=== PATIENT | female | born 1945 | race Caucasian/White ===

== ENCOUNTER 2017-04-15 09:46 | Outpatient (CLI) | payer MEDICARE, OTHER ==
[2017-04-15 13:50] LABS: Bilirubin Negative (Negative); Blood, Urine Small (Negative); Clarity CLEAR (Clear); Glucose, Urine (Dipstick) Negative (Negative); Leukocyte Negative (Negative); Nitrite Negative (Negative); Protein, Urine (Dipstick) 30 mg/dL (Neg-Trace); Specific Gravity, Urine 1.019 (1.002-1.036); Urobilinogen 0.2 mg/dL (0.2-1.0); pH, Urine 6.5 (5.0-9.0)
[2017-04-15 14:02] LABS: Bacteria/HPF None Seen HPF (None Seen); Hyaline Casts/LPF 0-3 HYALINE CAST LPF (0-3 Hyaline); Pathc Cast-AUWi Flag 0.13 (0-2.49); Squamous Epithelial 0-3 HPF (0-3); WBC/HPF 0-3 HPF (0-3)
--- NOTE | 2017-04-15 14:12 | RAD ---
PA AND LATERAL CHEST: INDICATIONS: Preop exam. COMPARISON: Exam is compared to a prior single view of the chest, dated 09/21/2016. IMPRESSION: 1. No acute cardiopulmonary abnormality. 2. Cholecystectomy. COMMENTS: Heart size is within normal limits. No pleural effusion or pneumothorax is evident. No acute osseou s abnormality is evident. POS: [facility]
--- NOTE | 2017-04-15 16:06 | EKG ---
Test Reason : Blood Pressure : / mmHG Vent. Rate : 060 BPM Atrial Rate : 060 BPM P-R Int : 152 ms QRS Dur : 086 ms QT Int : 422 ms P-R-T Axes : 067 -43 095 degrees QTc Int : 422 ms Normal sinus rhythm Left axis deviation T wave abnormality, consider lateral ischemia Abnormal ECG Confirmed by TYRONE DANIEL ([id number]) on 04/15/2017 4:06:10 PM Referred By: TERRI Confirmed By:TYRONE DANIEL
== END 2017-04-15 09:47 | disposition home or self-care (01) ==
LOC: LABBT 09:46
PROVIDERS: ATTEND Orthopaedic Surgery
DX: Z01.818 Encounter for other preprocedural examination (principal); Z96.651 Presence of right artificial knee joint; Z90.49 Acquired absence of other specified parts of digestive tract
CPT/HCPCS: 71046; 81001; 93005; 93010

== ENCOUNTER 2017-04-22 11:17 | Outpatient (CLI) | payer MEDICARE, OTHER ==
[2017-04-22 11:52] LABS: Hemoglobin 15.1 g/dL (12.0-16.0); Mean Corpuscular Hemoglobin 32.9 pg (27.0-31.0); Mean Corpuscular Volume 96.7 fl (81.0-99.0); Platelet Count 212 thou/uL (130-400); RBC Distribution Width 11.9 % (11.5-14.5); Red Blood Cell (RBC) Count 4.58 mill/uL (4.20-5.40); White Blood Cell (WBC) Count 7.1 thou/uL (4.8-10.8)
[2017-04-22 11:58] LABS: PTT 29.1 SEC (22.9-36.1); Prothrombin Time 13.1 SEC (12.0-14.7)
[2017-04-22 12:18] LABS: Anion Gap 12 mmol/L (10-20); BUN (Urea Nitrogen) 16 mg/dL (9.8-20.1); Calc. Creatinine Clearance 0 mL/min (70-130); Carbon Dioxide 29 mmol/L (23-31); Chloride 104 mmol/L (98-107); Estimated GFR-MDRD 48; Glucose 235 mg/dL (83-110); Potassium 3.8 mmol/L (3.5-5.1); Sodium 141 mmol/L (136-145)
== END 2017-04-22 11:18 | disposition home or self-care (01) ==
LOC: LABBT 11:17
PROVIDERS: ATTEND Orthopaedic Surgery
DX: Z01.818 Encounter for other preprocedural examination (principal); M17.11 Unilateral primary osteoarthritis, right knee
CPT/HCPCS: 80048; 85027; 85610; 85730; 86850; 86900; 86901; 87081

== ENCOUNTER 2017-04-29 05:25 | Day surgery (SDC) | payer MEDICARE, OTHER ==
[2017-04-15 12:42] VITALS: BMI 30.7
[2017-04-29] MEDS ORDERED: CEFAZOLIN/Water 2 GM/20 ML SYRINGE ONE (06:04)
[2017-04-29] MEDS ORDERED: Fentanyl 250 MCG/5 ML VIAL ONE ×2 (06:12→08:56)
[2017-04-29] MEDS ORDERED: Midazolam HCl 2 mg/2 ml Vial ONE (06:12)
[2017-04-29] MEDS ORDERED: Lidocaine 1% (PF) 30 ML VIAL ONE (06:13)
[2017-04-29] MEDS ORDERED: diphenhydrAMINE 25 MG CAP PO PRN (06:49)
[2017-04-29] MEDS ORDERED: Promethazine HCl 25 MG/ML VIAL IM PRN ×3 (06:49→08:37)
[2017-04-29] MEDS ORDERED: Ondansetron HCl/PF 4 MG/2 ML Vial IVP PRN ×3 (06:49→08:37)
[2017-04-29] MEDS ORDERED: Fentanyl 100 MCG/2 ML VIAL SLOW IVP PRN ×2 (06:49)
[2017-04-29] MEDS ORDERED: Acetaminophen 325 MG TAB PO PRN (06:49)
[2017-04-29] MEDS ORDERED: traMADol HCl 50 MG TAB PO PRN ×3 (06:49→07:44)
[2017-04-29] MEDS ORDERED: Zolpidem Tartrate 5 MG TAB PO PRN ×2 (06:49→07:44)
[2017-04-29] MEDS ORDERED: Calcium Carbonate 500 MG ChewTAB PO PRN (06:52)
[2017-04-29] MEDS ORDERED: oxyCODONE/Acetaminophen 5 mg/325 mg Tablet PO PRN (06:52)
[2017-04-29] MEDS ORDERED: Tranexamic Acid 1,000 MG in Sodium Chloride 0.9% 100 ML IVPB SCH (07:00)
[2017-04-29] MEDS ORDERED: Ropivacaine HCl/PF 250 ML in Premix Bag 1 BAG NERVE BLCK SCH (07:44)
[2017-04-29] MEDS ORDERED: HYDROcodone/Acetaminophen 10/325 mg Tablet PO PRN ×2 (07:44)
[2017-04-29] MEDS ORDERED: Ketorolac Tromethamine 30 MG/ML VIAL IVP PRN (07:44)
[2017-04-29] MEDS ORDERED: Fentanyl 100 MCG/2 ML VIAL IV PRN (07:45)
[2017-04-29] MEDS ORDERED: Morphine Sulfate 2 MG/ML SYRINGE SLOW IVP PRN (08:37)
[2017-04-29] MEDS ORDERED: Promethazine HCl 25 MG/ML VIAL SLOW IVP PRN (08:37)
[2017-04-29] MEDS ORDERED: Acetaminophen 1,000 MG in Premix Bag 1 BAG IVPB SCH (08:45)
--- NOTE | 2017-04-29 09:13 | OP ---
PREOPERATIVE DIAGNOSIS: Degenerative joint disease, right knee. POSTOPERATIVE DIAGNOSIS: Degenerative joint disease, right knee. SURGEON: Elfego Berry M.D. SUPERVISOR [employer]: Matt Jones PA-C. BLOOD LOSS: Minimal. SPECIMEN: None. DRAINS: None. COMPLICATIONS: None. TOURNIQUET TIME: 46 minutes. IMPLANTS USED: Mal Triathlon 3 femur, 3 tibia, 9 mm CSX3 polyethylene, a 27 patella.. PROCEDURE IN DETAIL: After informed consent was obtained in the preoperative holding area. The joão ent was taken to the operative suite where general anesthesia was induced. Once adequate level of ge neral anesthesia was obtained, the patient was positioned and a well-padded tourniquet was placed maykel und the right proximal thigh. The right lower extremity was then prepped and draped in the usual fei rile fashion. Prior to exsanguination, a time out was called and all members of the surgical team ag roxanne upon site, surgeon, and patient. The extremity was then exsanguinated and the tourniquet was ra ised. A midline longitudinal incision was then made directly over the patella extending two fingerbr eadths above the superior pole of the patella and two fingerbreadths inferior to the inferior patella r pole of the patella. Deeper subcutaneous layers were dissected sharply and local bleeding was cont rolled with Bovie electrocautery. A quad tendon longitudinal split was then made sharply and a media n parapatellar arthrotomy was carried out both sharp and with Bovie electrocautery, carried down to o ne fingerbreadth medial to the tibial tubercle. The knee was then placed into flexion and the patell a was everted nicely, and a copious fat pad ectomy was performed allowing for greater exposure of the tibia. The computer-assisted distal femoral fiducial was then placed and pinned firmly, and the dis manuel femoral cutting guide was pinned firmly into place. The oscillating saw was then used to remove the appropriate amount of bone. The 4-in-1 cutting block was then placed on the distal femur and the oscillating saw was used to remove the appropriate amount of bone off of the anterior, posterior, an d chamfer cuts. After completion of bone cuts, the anterior cruciate ligament was resected sharply a nd the posterior cruciate ligament retractor was placed and the tibia was subluxed for better exposur e. Partial meniscectomies were carried out, and the tibial computer-assisted fiducial was pinned, an d the cutting guide was placed. Oscillating saw was then used to remove the bone with Hohmann retrac tors used to take care and protect the collateral ligaments. After the tibial resection was performe d, a laminar coffee break attendant was placed in between the freshened bone cuts. The knee placed at 90 degrees a nd further bilateral meniscectomies were carried out, and the curved osteotome and curettage was used to remove any excess bone spurs in the posterior compartment. Exparel was then injected into the po sterior capsule, jakob-articular synovia, pre-patella synovia, and musculature surrounding the capsule . The trial femoral component, tibial baseplate were placed with the appropriate polyethylene trial insert with an appropriate polyethylene spacer and patellar button. The knee was taken through full range of motion with flexion and extension from 0-90 degrees and patellar broach squarely in the troc hlea without any squinting or subluxation noted. The knee was also stable to varus and valgus stress ing at 0, 15, 45, and 90 degrees of flexion. The drawer was negative. All trial components were the n removed and the keel punch was used to provide the appropriate defect in the tibia with a mallet. The freshened bone cuts were copiously irrigated with pulsatile lavage of about 1-1/2 liters to remov e all excess debris. The freshened bone cuts were then dried and with suction and lap sponge. The k nee was placed in flexion and retractors were placed to provide access to all bone cuts. Tobramycin impregnated methyl methacrylate cement was then placed on the freshened bone cuts and implants which were malleted firmly into place. Curettage and Julian elevators were used to remove any excess bone c ement. The knee was placed into full extension and the patellar button was placed under compression, and the cement was allowed to cure. Once completed, the components were again taken through full ra nge of motion and copious irrigation of the knee was carried out with another liter of normal saline. All components were inspected fully with full range of motion and varus and valgus stressing. Ther e was no laxity noted and full extension was observed clinically. Primary closure was accomplished w ith #2 interrupted Vicryl stitch of the arthrotomy defect. This was oversewn with a #2 running Quill barbed stitch. The gravitational platelet system was then injected into the arthrotomy prior to cherri sure. The subcutaneous layer was then closed with a running 0 barbed Monocryl stitch and skin closur e accomplished with a running subcuticular 3-0 Monocryl barbed Quill stitch and augmented with cement on the skin. Tourniquet was lowered. Good spontaneous return of distal pulses was noted clinically and a sterile dressing was applied to the incision. The procedure was terminated without any compli cations. The patient was awakened in the operative suite and the tourniquet was removed, and the pat ient was taken to the recovery room in stable condition.
--- NOTE | 2017-04-29 09:45 | RAD ---
RIGHT KNEE TWO VIEWS: History: Total knee replacement, post op exam. FINDINGS/IMPRESSION: There are recent post op changes of total knee arthroplasty in good position and alignment. Soft tiss ue air is present. POS: [facility]
[2017-04-29] MEDS: Senokot S 8.6-50 MG TAB PO SCH ×2 (11:17→21:16)
[2017-04-29] MEDS: Sodium Chloride 0.9% 1,000 ML IV SCH ×2 (11:17→16:53)
[2017-04-29] MEDS: Multivitamin W/ Minerals 1 TAB PO SCH (11:17)
[2017-04-29] MEDS: Metoprolol Tartrate 100 MG TAB PO SCH ×2 (11:18→21:17)
[2017-04-29] MEDS: Aspirin 81 mg Enteric Coated Tablet PO SCH ×2 (11:18→21:17)
[2017-04-29] MEDS: Lisinopril 20 MG TAB PO SCH (11:18)
[2017-04-29] MEDS: Amlodipine 10 MG TAB PO SCH (11:18)
[2017-04-29] MEDS: Furosemide 20 MG TAB PO SCH (11:18)
[2017-04-29] MEDS: Ferrous Gluconate 324 MG TAB PO SCH ×2 (11:18→21:19)
--- NOTE | 2017-04-29 13:04 | PDOC.PN ---
- Subjective Encounter Start Date: 04/29/17 Encounter Start Time: 12:00 -: old records requested/rev Patient seen and examined. No new complaints. No overnight events s/p right knee replacement has nerve block, has hernandez pain controlled - Objective MAR Reviewed: Yes Vital Signs & Weight: Vital Signs (12 hours) Temp Pulse Resp BP Pulse Ox 04/29/17 12:17 97.3 F L 74 18 116/64 94 L 04/29/17 11:50 97.2 F L 72 18 95 04/29/17 11:18 72 04/29/17 10:45 97.2 F L 72 20 119/52 L 93 L Weight Weight 157 lb Radiology Reviewed by me: Yes Phys Exam - Physical Examination Constitutional: NAD HEENT: PERRLA, moist MMs, sclera anicteric Neck: no JVD, supple Respiratory: no wheezing, no rales, no rhonchi Cardiovascular: RRR, no significant murmur, no rub Gastrointestinal: soft, non-tender, no distention, positive bowel sounds Musculoskeletal: no edema, pulses present knee with dressing Neurological: non-focal, normal sensation, moves all 4 limbs Psychiatric: normal affect, A&O x 3 Skin: no rash, normal turgor Dx/Plan (1) Status post right knee replacement Code(s): Z96.651 - PRESENCE OF RIGHT ARTIFICIAL KNEE JOINT Status: Acute (2) Hypertension Code(s): I10 - ESSENTIAL (PRIMARY) HYPERTENSION Status: Chronic (3) CAD (coronary artery disease) Code(s): I25.10 - ATHSCL HEART DISEASE OF [place] CORONARY ARTERY W/O ANG PCTRS Status: Chronic - Plan cont current plan of care, PT/OT * continue aspirin for DVT prophylaxis * continue home medication * code status-full code, pt is making decision * medication reviewed as below * symptomatic treatment * nerve block * pain control with pain meds * PT as per [facility] protocol treatment. * pepcid for Gi prophylaxis Review of Systems - Review of Systems Constitutional: negative: fever, chills, sweats, weakness, malaise, other ENT: negative: Ear Pain, Ear Discharge, Nose Pain, Nose Discharge, Nose Congestion, Mouth Pain, Mouth Swelling, Throat Pain, Throat Swelling, Other Respiratory: negative: Cough, Dry, Shortness of Breath, Hemoptysis, SOB with Excertion, Pleuritic Pain, Sputum, Wheezing Cardiovascular: negative: chest pain, palpitations, orthopnea, paroxysmal nocturnal dyspnea, edema, light headedness, other Gastrointestinal: negative: Nausea, Vomiting, Abdominal Pain, Diarrhea, Constipation, Melena, Hematochezia, Other Genitourinary: negative: Dysuria, Frequency, Incontinence, Hematuria, Retention , Other Musculoskeletal: negative: Neck Pain, Shoulder Pain, Arm Pain, Back Pain, Hand Pain, Leg Pain, Foot Pain, Other Skin: negative: Rash, Lesions, Luke, Bruising, Other - Medications/Allergies Allergies/Adverse Reactions: Allergies Allergy/AdvReac Type Severity Reaction Status Date / Time codeine Allergy Intermediate CAUSES Verified 04/15/17 12:42 PAIN ALL OVER hydrochlorothiazide Allergy Verified 04/29/17 11:16 Medications: Current Medications Acetaminophen (Tylenol) 650 mg PO Q4H PRN PRN Reason: OVIEDO/ T > 101F; Mild Pain (1-3) Hydrocodone Bitart/Acetaminophen ([place] 10/325) 1 tab PO Q4H PRN PRN Reason: Pain (1-3) Hydrocodone Bitart/Acetaminophen ([place] 10/325) 2 tab PO Q4H PRN PRN Reason: PAIN (4-6) Amlodipine Besylate (Norvasc) 10 mg PO DAILY [facility] Last Admin: 04/29/17 11:18 Dose: Not Given Aspirin (Ecotrin) 81 mg PO BID [facility] Last Admin: 04/29/17 11:18 Dose: Not Given Calcium Carbonate (Tums) 500 mg PO QID PRN PRN Reason: Heartburn or Indigestion Cefazolin Sodium (Ancef) 2 gm SLOW IVP Q8HR [facility] Stop: 04/29/17 22:01 Diphenhydramine HCl (Benadryl) 25 mg PO Q6H PRN PRN Reason: Itching Fentanyl (Sublimaze) 50 mcg SLOW IVP Q30MIN PRN PRN Reason: Moderate Pain (4-6) Fentanyl (Sublimaze) 100 mcg SLOW IVP Q1H PRN PRN Reason: Severe Pain (7-10) Fentanyl (Sublimaze) 50 mcg IV Q1H PRN PRN Reason: BT PAIN Ferrous Gluconate (Fergon) 324 mg PO BID [facility] Last Admin: 04/29/17 11:18 Dose: Not Given Furosemide (Lasix) 20 mg PO DAILY [facility] Last Admin: 04/29/17 11:18 Dose: Not Given Sodium Chloride (Normal Saline 0.9%) 1,000 mls @ 100 mls/hr IV .Q10H [facility] Last Admin: 04/29/17 11:17 Dose: Not Given Ropivacaine 250 ml/ Device 250 mls @ 0 mls/hr NERVE BLCK INF [facility] PRN Reason: As Directed Acetaminophen 1,000 mg/ Device 100 mls @ 400 mls/hr IVPB ONE [facility] Stop: 04/30/17 08:46 Iron/Minerals/Multivitamins (Theragran M) 1 tab PO DAILY [facility] Last Admin: 04/29/17 11:17 Dose: Not Given Ketorolac Tromethamine (Toradol) 15 mg IM Q8HR [facility] Stop: 05/01/17 14:01 Ketorolac Tromethamine (Toradol) 15 mg IVP Q6H PRN PRN Reason: Moderate Pain (4-6) Stop: 05/02/17 07:45 Lisinopril (Zestril) 40 mg PO DAILY [facility] Last Admin: 04/29/17 11:18 Dose: Not Given Melatonin (Melatonin) 5 mg PO [facility] Metoprolol Tartrate (Lopressor) 100 mg PO BID [facility] Last Admin: 04/29/17 11:18 Dose: Not Given Ondansetron HCl (Zofran) 4 mg IVP Q6H PRN PRN Reason: Nausea/Vomiting Ondansetron HCl (Zofran) 4 mg IVP Q6H PRN PRN Reason: Nausea/Vomiting Oxycodone/Acetaminophen (Percocet 5/325) 2 tab PO Q4H PRN PRN Reason: Pain Promethazine HCl (Phenergan) 12.5 mg IM Q4H PRN PRN Reason: Nausea/Vomiting Promethazine HCl (Phenergan) 12.5 mg IM Q4H PRN PRN Reason: Nausea Senna/Docusate Sodium (Senokot S) 2 tab PO BID [facility] Last Admin: 04/29/17 11:17 Dose: Not Given Sodium Chloride (Flush - Normal Saline) 10 ml IVF PRN PRN PRN Reason: Saline Flush Tramadol HCl (Ultram) 100 mg PO Q6H PRN PRN Reason: Mild Pain (1-3) Tramadol HCl (Ultram) 50 mg PO Q6H PRN PRN Reason: Mild Pain (1-3) Tramadol HCl (Ultram) 100 mg PO Q6H PRN PRN Reason: Moderate Pain 4-6 Tranexamic Acid (Tranexamic Acid) 1,000 mg IVP ONE [facility] Stop: 04/29/17 14:00 Zolpidem Tartrate (Ambien) 5 mg PO HSPRN PRN PRN Reason: Insomnia Zolpidem Tartrate (Ambien) 5 mg PO HSPRN PRN PRN Reason: Insomnia History of Present Illnes - History of Present Illness Reason for Visit: admitted for right knee replacement History of Present Illness: s/p right knee replacement post op consult for medical management medical problem stable pain controlled outpt treatment for OA failed so required knee replacement - Past Medical History Cardiac: CAD, HTN Musculoskeletal: Osteoarthritis - Past Surgical History Past Surgical History: Cholecystectomy, Total Knee Replacement (wrist fracture and 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
[2017-04-29] MEDS ORDERED: Loperamide HCl 2 MG CAP PO PRN (13:08)
[2017-04-29] MEDS ORDERED: Milk Of Magnesia 30 ML UDCUP PO PRN (13:08)
[2017-04-29] MEDS ORDERED: Artificial Tears 18 DROP/0.9 ML EA EYE PRN (13:08)
[2017-04-29] MEDS ORDERED: Bisacodyl 10 MG SUPP PR PRN (13:08)
[2017-04-29] MEDS ORDERED: Mag-Al 1200 mg/1200 mg/30 ML UDCUP PO PRN (13:08)
[2017-04-29] MEDS ORDERED: Eucerin (Mineral Oil/Petrolatum,White) 30 gm Jar TOP PRN (13:08)
[2017-04-29] MEDS ORDERED: Diabetic Tussin 200 MG/10 ML UDCUP PO PRN (13:08)
[2017-04-29] MEDS ORDERED: hydrALAZINE 20 MG/ML VIAL SLOW IVP PRN (13:08)
[2017-04-29] MEDS ORDERED: Loratadine 10 MG TAB PO PRN (13:08)
[2017-04-29] MEDS ORDERED: Chloraseptic Spray 180 ml Bottle PO PRN (13:08)
[2017-04-29] MEDS ORDERED: Ropivacaine 0.2% HCl/PF (40 MG/20 ML VIAL) ONE (13:48)
[2017-04-29] MEDS ORDERED: Ropivacaine 0.5% HCl/PF (150 MG/30 ML VIAL) ONE (13:48)
[2017-04-29] MEDS ORDERED: Dexamethasone 20 MG/5 ML VIAL ONE (14:35)
[2017-04-29] MEDS ORDERED: Ondansetron HCl/PF 4 MG/2 ML Vial ONE ×2 (14:35)
[2017-04-29] MEDS ORDERED: Labetalol 100 MG/20 ML MDV ONE (14:35)
[2017-04-29] MEDS ORDERED: Ketorolac Tromethamine 30 MG/ML VIAL ONE (14:35)
[2017-04-29] MEDS ORDERED: Propofol 200 MG/20 ML VIAL ONE (14:35)
[2017-04-29] MEDS: Ketorolac Tromethamine 30 MG/ML VIAL IM SCH ×2 (16:10→23:10)
[2017-04-29] MEDS: CEFAZOLIN/Water 2 GM/20 ML SYRINGE SLOW IVP SCH ×2 (16:50→23:11)
[2017-04-29] MEDS ORDERED: Melatonin 3 MG TAB PO SCH (21:00)
[2017-04-29] MEDS: Famotidine 20 MG TAB PO SCH (21:17)
[2017-04-30] MEDS: Sodium Chloride 0.9% 1,000 ML IV SCH ×2 (02:24→08:55)
[2017-04-30 04:42] LABS: Hemoglobin 12.6 g/dL (12.0-16.0); Mean Corpuscular HGB CONC 33.4 g/dL (32.0-36.0); Mean Corpuscular Hemoglobin 32.7 pg (27.0-31.0); Mean Platelet Volume 10.5 fL (7.4-10.4); Platelet Count 187 thou/uL (130-400); RBC Distribution Width 11.8 % (11.5-14.5); Red Blood Cell (RBC) Count 3.86 mill/uL (4.20-5.40); White Blood Cell (WBC) Count 11.4 thou/uL (4.8-10.8)
[2017-04-30] MEDS: Ketorolac Tromethamine 30 MG/ML VIAL IM SCH (05:52)
[2017-04-30] MEDS: Senokot S 8.6-50 MG TAB PO SCH ×2 (08:50→08:54)
[2017-04-30] MEDS: Amlodipine 10 MG TAB PO SCH (08:50)
[2017-04-30] MEDS: Famotidine 20 MG TAB PO SCH (08:50)
[2017-04-30] MEDS: Metoprolol Tartrate 100 MG TAB PO SCH (08:50)
[2017-04-30] MEDS: Aspirin 81 mg Enteric Coated Tablet PO SCH (08:50)
[2017-04-30] MEDS: Lisinopril 20 MG TAB PO SCH (08:50)
[2017-04-30] MEDS: Furosemide 20 MG TAB PO SCH (08:50)
[2017-04-30] MEDS: Ferrous Gluconate 324 MG TAB PO SCH (08:51)
[2017-04-30] MEDS: Multivitamin W/ Minerals 1 TAB PO SCH (08:51)
--- NOTE | 2017-04-30 10:32 | PDOC.PN ---
- Subjective Encounter Start Date: 04/30/17 Encounter Start Time: 08:50 Patient seen and examined. No new complaints. No overnight events - Objective Resuscitation Status: Resuscitation Status FULL:Full Resuscitation MAR Reviewed: Yes Vital Signs & Weight: Vital Signs (12 hours) Temp Pulse Resp BP Pulse Ox 04/30/17 08:55 98.0 F 85 16 180/66 H 92 L 04/30/17 08:50 71 04/30/17 05:00 98.4 F 71 19 146/70 H 94 L 04/30/17 00:00 98.7 F 72 18 149/69 H 93 L Weight Weight 157 lb I&O: 04/29/17 04/30/17 05/01/17 06:59 06:59 06:59 Intake Total 2400 Output Total 1350 Balance 1050 Result Diagrams: 04/30/17 03:12 Phys Exam - Physical Examination Constitutional: NAD HEENT: PERRLA, moist MMs, sclera anicteric Neck: no JVD, supple Respiratory: no wheezing, no rales, no rhonchi Cardiovascular: RRR, no significant murmur Gastrointestinal: soft, non-tender, no distention, positive bowel sounds Musculoskeletal: no edema, pulses present Neurological: non-focal, normal sensation, moves all 4 limbs Psychiatric: normal affect, A&O x 3 Skin: no rash, normal turgor Dx/Plan (1) Status post right knee replacement Code(s): Z96.651 - PRESENCE OF RIGHT ARTIFICIAL KNEE JOINT Status: Acute (2) Hypertension Code(s): I10 - ESSENTIAL (PRIMARY) HYPERTENSION Status: Chronic (3) CAD (coronary artery disease) Code(s): I25.10 - ATHSCL HEART DISEASE OF [place] CORONARY ARTERY W/O ANG PCTRS Status: Chronic - Plan cont current plan of care, PT/OT * continue aspirin for DVT prophylaxis * continue home medication * code status-full code, pt is making decision * medication reviewed as below * symptomatic treatment * nerve block * pain control with pain meds * PT as per [facility] protocol treatment. * pepcid for Gi prophylaxis. * today plan for discharge * will sign off * pt is not tolerating opiod for pain * resume home meds on discharge * pain meds as per primary team Review of Systems - Review of Systems ENT: negative: Ear Pain, Ear Discharge, Nose Pain, Nose Discharge, Nose Congestion, Mouth Pain, Mouth Swelling, Throat Pain, Throat Swelling, Other Respiratory: negative: Cough, Dry, Shortness of Breath, Hemoptysis, SOB with Excertion, Pleuritic Pain, Sputum, Wheezing Cardiovascular: negative: chest pain, palpitations, orthopnea, paroxysmal nocturnal dyspnea, edema, light headedness, other Gastrointestinal: negative: Nausea, Vomiting, Abdominal Pain, Diarrhea, Constipation, Melena, Hematochezia, Other Genitourinary: negative: Dysuria, Frequency, Incontinence, Hematuria, Retention , Other Musculoskeletal: negative: Neck Pain, Shoulder Pain, Arm Pain, Back Pain, Hand Pain, Leg Pain, Foot Pain, Other Skin: negative: Rash, Lesions, Luke, Bruising, Other - Medications/Allergies Allergies/Adverse Reactions: Allergies Allergy/AdvReac Type Severity Reaction Status Date / Time codeine Allergy Intermediate CAUSES Verified 04/15/17 12:42 PAIN ALL OVER hydrochlorothiazide Allergy Verified 04/29/17 11:16 Medications: Current Medications Acetaminophen (Tylenol) 650 mg PO Q4H PRN PRN Reason: OVIEDO/ T > 101F; Mild Pain (1-3) Hydrocodone Bitart/Acetaminophen ([place] 10/325) 1 tab PO Q4H PRN PRN Reason: Pain (1-3) Hydrocodone Bitart/Acetaminophen ([place] 10/325) 2 tab PO Q4H PRN PRN Reason: PAIN (4-6) Al Hydroxide/Mg Hydroxide (Maalox) 15 ml PO Q4H PRN PRN Reason: Heartburn or Indigestion Amlodipine Besylate (Norvasc) 10 mg PO DAILY [facility] Last Admin: 04/30/17 08:50 Dose: 10 mg Artificial Tears (Tears Naturale) 0 drop EA EYE PRN PRN PRN Reason: Dry Eyes Aspirin (Ecotrin) 81 mg PO BID [facility] Last Admin: 04/30/17 08:50 Dose: 81 mg Bisacodyl (Dulcolax) 10 mg AL DAILYPRN PRN PRN Reason: Constipation Calcium Carbonate (Tums) 500 mg PO QID PRN PRN Reason: Heartburn or Indigestion Diphenhydramine HCl (Benadryl) 25 mg PO Q6H PRN PRN Reason: Itching Famotidine (Pepcid) 20 mg PO BID [facility] Last Admin: 04/30/17 08:50 Dose: 20 mg Fentanyl (Sublimaze) 50 mcg SLOW IVP Q30MIN PRN PRN Reason: Moderate Pain (4-6) Fentanyl (Sublimaze) 100 mcg SLOW IVP Q1H PRN PRN Reason: Severe Pain (7-10) Fentanyl (Sublimaze) 50 mcg IV Q1H PRN PRN Reason: BT PAIN Ferrous Gluconate (Fergon) 324 mg PO BID [facility] Last Admin: 04/30/17 08:51 Dose: Not Given Furosemide (Lasix) 20 mg PO DAILY [facility] Last Admin: 04/30/17 08:50 Dose: 20 mg Guaifenesin (Robitussin Sf) 200 mg PO Q4H PRN PRN Reason: Cough Hydralazine HCl (Apresoline) 10 mg SLOW IVP Q4H PRN PRN Reason: Systolic BP > 180 Sodium Chloride (Normal Saline 0.9%) 1,000 mls @ 100 mls/hr IV .Q10H [facility] Last Admin: 04/30/17 08:55 Dose: Not Given Ropivacaine 250 ml/ Device 250 mls @ 0 mls/hr NERVE BLCK INF [facility] PRN Reason: As Directed Iron/Minerals/Multivitamins (Theragran M) 1 tab PO DAILY [facility] Last Admin: 04/30/17 08:51 Dose: Not Given Ketorolac Tromethamine (Toradol) 15 mg IM Q8HR [facility] Stop: 05/01/17 14:01 Last Admin: 04/30/17 05:52 Dose: 15 mg Ketorolac Tromethamine (Toradol) 15 mg IVP Q6H PRN PRN Reason: Moderate Pain (4-6) Stop: 05/02/17 07:45 Last Admin: 04/29/17 15:18 Dose: 15 mg Lisinopril (Zestril) 40 mg PO DAILY [facility] Last Admin: 04/30/17 08:50 Dose: 40 mg Loperamide HCl (Imodium) 2 mg PO PRN PRN PRN Reason: Diarrhea/Loose Stools Loratadine (Claritin) 10 mg PO DAILYPRN PRN PRN Reason: Sinus Symptoms Magnesium Hydroxide (Milk Of Magnesium) 30 ml PO DAILYPRN PRN PRN Reason: Constipation Melatonin (Melatonin) 5 mg PO [facility] Last Admin: 04/29/17 21:19 Dose: Not Given Metoprolol Tartrate (Lopressor) 100 mg PO BID [facility] Last Admin: 04/30/17 08:50 Dose: 100 mg Mineral Oil/White Petrolatum (Eucerin Cream) 0 gm TOP BIDPRN PRN PRN Reason: Dry Skin Ondansetron HCl (Zofran) 4 mg IVP Q6H PRN PRN Reason: Nausea/Vomiting Oxycodone/Acetaminophen (Percocet 5/325) 2 tab PO Q4H PRN PRN Reason: Pain Last Admin: 04/30/17 10:06 Dose: 2 tab Phenol (Chloraseptic [place] 180 Ml Bot) 0 ml PO PRN PRN PRN Reason: Sore Throat Promethazine HCl (Phenergan) 12.5 mg IM Q4H PRN PRN Reason: Nausea Senna/Docusate Sodium (Senokot S) 2 tab PO BID [facility] Last Admin: 04/30/17 08:54 Dose: Not Given Sodium Chloride (Flush - Normal Saline) 10 ml IVF PRN PRN PRN Reason: Saline Flush Tramadol HCl (Ultram) 50 mg PO Q6H PRN PRN Reason: Mild Pain (1-3) Tramadol HCl (Ultram) 100 mg PO Q6H PRN PRN Reason: Moderate Pain 4-6 Zolpidem Tartrate (Ambien) 5 mg PO HSPRN PRN PRN Reason: Insomnia
--- NOTE | 2017-04-30 11:13 | DIS ---
DATE OF ADMISSION: 04/29/2017 DATE OF DISCHARGE: 04/30/2017 PRIMARY CARE PHYSICIAN: Faisal Lopez M.D. DISCHARGE DISPOSITION: Home. PRIMARY DISCHARGE DIAGNOSIS: Status post right total knee replacement. SECONDARY DISCHARGE DIAGNOSES: Hypertension and coronary artery disease. PRIMARY PROCEDURE/OPERATION: Right total knee replacement. RADIOLOGICAL INVESTIGATION: Knee x-ray. SIGNIFICANT LABORATORY DATA: WBC 11.4, hemoglobin 12.6, platelet 187. DISCHARGE MEDICATIONS: Amlodipine 10 mg p.o. daily, aspirin 81 mg p.o. b.i.d., Tums 500 mg p.o. q.i. d., Lasix 20 mg p.o. daily, lisinopril 40 mg p.o. daily, melatonin 5 mg p.o. at bedtime, metoprolol 1 00 mg p.o. b.i.d., Percocet one or two tablets q.4 hourly p.r.n. CONTRAINDICATIONS: None. CODE STATUS: FULL CODE. INPATIENT CONSULTANTS: Dr. Berry was primary, Sound team was consulted for medical management. TEST RESULTS PENDING ON DISCHARGE: None. ALLERGIES: CODEINE and HYDROCHLOROTHIAZIDE. DISCHARGE PLAN: Post hospital, the patient will follow up with primary care physician and Dr. Elfego Berry as instructed. HOSPITAL COURSE: A 71-year-old female who was admitted by Dr. Elfego Berry for right total knee repl acement, which was done without any complication. Postoperatively, Sound team was consulted for [facility] comanagement. The patient's all medical problems remained stable, will resume home medication wh ile in hospital as well as on discharge. She is given aspirin for DVT prophylaxis. Pain medication is given by primary team. The patient did very well per [facility] protocol treatment. The garry chao is planned for discharge by primary team. We will sign off. The patient is seen and examined at bedside today. Please see my progress note from today for furthe r detail.
[2017-04-30 12:55] VITALS: TEMP 98.1
[2017-04-30] MEDS ORDERED: Ropivacaine 0.2% 550 ML 550 ML NERVE BLCK SCH (14:12)
[2017-04-30 17:40] VITALS: BP 158/72
== END 2017-04-30 17:38 | disposition home or self-care (01) ==
LOC: EDBD → SDC 05:25 → SJJU 06:49 → SDC 04-30 17:38
PROVIDERS: ATTEND Orthopaedic Surgery
PROC: 8E0YXBZ Computer Assisted Procedure of Lower Extremity (ICD-10-PCS; principal; 2017-04-29)
PROC: 0SRC0J9 Replacement of Right Knee Joint with Synthetic Substitute, Cemented, Open Approach (ICD-10-PCS; 2017-04-29)
DX: M17.11 Unilateral primary osteoarthritis, right knee (principal); I10 Essential (primary) hypertension; I25.10 Atherosclerotic heart disease of native coronary artery without angina pectoris; Z88.5 Allergy status to narcotic agent; Z88.8 Allergy status to other drugs, medicaments and biological substances; Z79.82 Long term (current) use of aspirin; Z79.899 Other long term (current) drug therapy
CPT/HCPCS: 20985; 27447; 73560; 85027; 97110; 97116 ×2; 97139; 97150; 97530; A4306; C1713; C1776; G8978; G8979; 36415; J0131; J1100; J1885; J2001; J2250; J2405; J2704; J2795; J3010; J3370

== ENCOUNTER 2018-02-25 11:14 | Emergency (ER) | payer MEDICARE, OTHER ==
[2018-02-25] MEDS ORDERED: Ondansetron PF 4 MG/2 ML Vial ONE (12:27)
[2018-02-25] MEDS ORDERED: Fentanyl 100 MCG/2 ML VIAL ONE ×2 (12:27→17:30)
[2018-02-25 13:27] LABS: #Eosinphils 0.1 thou/uL (0.0-0.7); #Lymphocytes 1.1 thou/uL (1.20-3.40); #Monocytes 0.7 thou/uL (0.11-0.59); #Neutrophils 7.4 thou/uL (1.40-6.50); %Basophils 0.1 % (0.0-1.0); %Eosinophils 0.7 % (0.0-10.0); %Lymphocytes 11.5 % (21.0-51.0); %Monocytes 7.5 % (0.0-10.0); %Neutrophils 80.2 % (42.0-75.0); Hemoglobin 13.9 g/dL (12.0-16.0); Mean Corpuscular HGB CONC 34.3 g/dL (32.0-36.0); Mean Corpuscular Hemoglobin 31.7 pg (27.0-31.0); Mean Corpuscular Volume 92.5 fL (78.0-98.0); Platelet Count 234 thou/uL (130-400); RBC Distribution Width 12.1 % (11.5-14.5); Red Blood Cell (RBC) Count 4.38 mill/uL (4.20-5.40); White Blood Cell (WBC) Count 9.3 thou/uL (4.8-10.8)
[2018-02-25 13:52] LABS: ALT (SGPT) 23 U/L (8-55); AST (SGOT) 25 U/L (5-34); Albumin 4.2 g/dL (3.4-4.8); Alkaline Phosphatase 80 U/L (40-150); Anion Gap 16 mmol/L (10-20); BUN (Urea Nitrogen) 25 mg/dL (9.8-20.1); Bilirubin, Total 0.7 mg/dL (0.2-1.2); Calc. Creatinine Clearance 0 mL/min (70-130); Carbon Dioxide 21 mmol/L (23-31); Chloride 104 mmol/L (98-107); Estimated GFR-MDRD 44; Globulin 3.3 g/dL (2.4-3.5); Glucose 232 mg/dL (83-110); Potassium 4.4 mmol/L (3.5-5.1); Protein, Total 7.5 g/dL (6.0-8.3); Sodium 137 mmol/L (136-145)
[2018-02-25 13:55] LABS: Bacteria/HPF None Seen HPF (None Seen); Blood, Urine Large (Negative); Glucose, Urine (Dipstick) Negative (Negative); Hyaline Casts/LPF 4-6 HYALINE CAST LPF (0-3 Hyaline); Leukocyte Trace (Negative); Pathc Cast-AUWi Flag 1.55 (0-2.49); Protein, Urine (Dipstick) 100 mg/dL (Neg-Trace); RBC/HPF GREATER THAN 50-TNTC HPF (0-3); Squamous Epithelial 0-3 HPF (0-3); pH, Urine 6.5 (5.0-9.0)
[2018-02-25 13:56] LABS: Clarity Cloudy (Clear)
[2018-02-25 13:57] LABS: Bilirubin Unable to Interpret (Negative); Nitrite Unable to Interpret (Negative)
--- NOTE | 2018-02-25 17:08 | CT ---
CT ABDOMEN AND PELVIS WITH AND WITHOUT IV CONTRAST: Date: 02/25/18 HISTORY: Dysuria, hematuria, and urinary retention for past few days. COMPARISON: None available. FINDINGS: There is a large, heterogeneous mass with central area of low density likely related to necrosis invo lving the mid portion and inferior pole of the right kidney. This mass measures 7.7 cm craniocaudal x 8.0 cm transverse x 6.1 cm AP, and is worrisome for renal cell carcinoma. There is distortion of the right renal collecting system due to the large mass, without evidence of hydronephrosis. Areas of ir regularity involving the right renal pelvis likely related to extension of tumor into the renal pelvi s. The right renal vein is not well opacified. There are neovascularities surrounding the right renal mass. There is an increased density 3.0 cm lesion medial aspect mid portion of right kidney likely related to Bosniak Type II renal cystic lesion which abuts the large heterogeneous right renal mass. There is a 7.0 mm noncalcified pulmonary nodule at the anterolateral aspect of the right lung base, w hich may represent a metastatic lesion. Lung bases are otherwise clear. The liver, pancreas, and bilateral adrenal glands demonstrate a normal CT appearance. Calcified granulomata are seen throughout the spleen. Post cholecystectomy changes are noted. There is a calcified uterine fibroid present in the uterus measuring 1.8 cm. There is a fluid attenua tion cystic structure seen in the left adnexal region, which could be related to an ovarian cyst. Mcmahon catheter is present in the urinary bladder which is mostly decompressed. There is colonic diverticulosis with diverticulitis seen diffusely throughout the colon, most greater in the region of the sigmoid colon. Vascular calcifications seen in the abdominal aorta and iliac arteries. No enlarged lymph nodes are seen by CT size criteria. No free fluid or fluid collection seen. Degenerative changes are noted in the spine, but no lytic or sclerotic osseous lesions are seen. IMPRESSION: 1. Heterogeneous partially necrotic mass occupying a large portion of the mid portion and inferior p ole of the right kidney, worrisome for renal cell carcinoma. This mass does distort the renal collect ing system and likely involves a portion of the renal pelvis. 2. 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 3. Pulmonary nodule right lung base which may represent a focal metastatic lesion. Further evaluatio n with CT scan of thorax is recommended to evaluate for additional pulmonary nodules. 4. Colonic diverticulosis. 5. Fluid attenuation cystic structure left adnexa which may represent an ovarian cyst. 6. Calcified uterine fibroid. 7. Diffuse colonic diverticulosis. POS: MARY
[2018-02-25 17:52] LABS: Lactic Acid 2.2 mmol/L (0.5-2.2)
--- NOTE | 2018-02-25 21:18 | CT ---
CHEST CT SCAN WITHOUT IV CONTRAST: 02/25/18 HISTORY: 72-year-old female with abnormal abdomen and pelvic CT scan with a right renal mass to evaluate for m etastasis. Abdomen and pelvic CT scan had been performed with and without IV contrast earlier today at approxima tely 3 p.m. There is a circumscribed 0.6 cm diameter right lower lobe subpleural pulmonary nodule. In fairly clos e proximity, there is also a very small, approximately 0.2 cm diameter nodule. No evidence for medias tinal mass or adenopathy. No pleural or pericardial effusion. Small hiatal hernia. No evidence for ot her pulmonary nodules. Again noted is large right renal mass which was described in detail on the abd omen and pelvic CT scan previously. IMPRESSION: Two small right lower lobe pulmonary nodules. No mediastinal mass or adenopathy. No pleural effusion or other acute process. No other pulmonary nodules demonstrated. POS: MARY
--- NOTE | 2018-02-26 01:44 | CON ---
DATE OF CONSULTATION: 02/25/2018 TYPE OF CONSULTATION: ER. HISTORY OF PRESENT ILLNESS: Ms. Thorpe is a pleasant 72-year-old female with history of hypertension, who presented to the emergency room due to gross hematuria with history of UTI. The patient states that she was treated for presumptuous UTI beginning in July, as she presented with dysuria, gross hematuria. This reoccurred sometime in December and again occurred over the [place] holidays. She has had sensation of incomplete void, seen by the emergency room staff, catheter was placed with initial hematuria with subsequent clear concentrated urine, 150cc uo pVR with hernandez There was a small clot that was evacuated by the ER staff and subsequently the urine output has been clear. The patient was being discharged to home; however, as I was consulted, I informed them to obtain a CT of the abdomen and pelvis, hematuria protocol. Subsequently, I was re-contacted as CT unfortunately does demonstrate a large right 7 x 8 x 6.1 cm right heterogeneous renal mass central in the kidney, suspicious for renal cell carcinoma. There is no evidence of hydronephrosis, but there is evidence of distortion of the collecting system from the large central renal mass. Due to a 7 mm pulmonary nodule in the right lung, a CT of the abdomen has been obtained, however, the results are pending. Currently, she has an indwelling urethral Hernandez catheter, 18-Irish 3-way with CBI plugged, demonstrating concentrated yellow urine. She denies history of significant tobacco abuse, smoked for 10 years and quit in the early 1970s. She is , retired, occupational therapy aide, has 2 children and presents with her . PAST MEDICAL HISTORY: Includes hypertension. PAST SURGICAL HISTORY: Laparoscopic cholecystectomy in 2006, left forehead surgery, fracture, pin installation, right total knee replacement in October [address] Berry. PSYCHIATRIC HISTORY: Negative. SOCIAL HISTORY: 10-pack year smoking history in the remote past, quit in 1970. ALLERGIES: 1. BENADRYL. 2. CLONIDINE. 3. CODEINE. 4. HYDROCHLOROTHIAZIDE. 5. PROPOFOL. 6. VICODIN. HOME MEDICATIONS: Include, 1. Lisinopril. 2. Ultram. 3. Amlodipine. 4. Lasix 20 mg 1 p.o. daily. 5. Metoprolol 100 mg 1 p.o. daily. PHYSICAL EXAMINATION: VITAL SIGNS: On presentation initially; hypertensive at 232/142, subsequently her blood pressure 142/67 as her bladder is draining, pulse 81, respiration 18, she is afebrile. GENERAL: Currently, resting comfortably. HEENT: Grossly unremarkable. HEART: Regular rate. LUNGS: Clear. ABDOMEN: Obese, protuberant. No rigidity. No rebound. No palpable mass. Subtle umbilical scar consistent with laparoscopic cholecystectomy and laparoscopic port sites within the right upper quadrant. EXTREMITIES: No cyanosis, clubbing, or edema. : Demonstrates a Hernandez catheter adequately in place, irrigated with no subsequent clots appreciated. This is attached to a gravity bag. PERTINENT LABS AND IMAGING: White count is 9, hemoglobin 13.9, platelet 234. BUN is 25, creatinine 1.2. LFTs are grossly unremarkable. UA demonstrates 100 protein, trace leukocytes, greater than 50 rbc's, 11 to 15 wbc's, no epithelials, no bacteria. CT of the abdomen and pelvis with and without IV contrast: 1. Heterogeneous partially necrotic mass involving the right hel-sx-uyrdi pole central in the kidney, worrisome for renal cell carcinoma. It does distort the renal collecting system and likely involves portion of the renal pelvis. Incidental 3 cm right mid pole Bosniak II renal cyst, which abuts the large heterogeneous renal mass. 2. Pulmonary nodule, may represent focal metastatic lesion. Recommend CT of the thorax. 3. Colonic diverticulosis. 4. Ovarian cyst of the left adnexa. Calcified uterine fibroids and diffuse colonic diverticulosis. CT of the chest read is pending. IMPRESSION AND PLAN: 1. Ms. Thorpe is a 72-year-old female with history of hypertension with intermittent gross hematuria due to large renal mass abutting the collecting system. 2. History of intermittent gross hematuria as above. 3. History of hypertension. Currently, she is hemodynamically stable. She desires to be discharged home. I informed the patient that we could do further metastatic workup by a bone scan as an outpatient. Given her history of gross hematuria, recommend cystoscopy, retrograde, possible ureteroscopy to rule out TCC component of the upper pelvis; however, CT demonstrates it is highly suspicious for renal cell; however, warrants gross hematuria workup. She has been informed. contact my office tomorrow for a close followup. Job ID: [id number] MTD[facility]
== END 2018-02-25 20:22 | disposition home or self-care (01) ==
LOC: ERS 11:14
DX: R31.9 Hematuria, unspecified (principal); N28.89 Other specified disorders of kidney and ureter; I10 Essential (primary) hypertension; Z79.899 Other long term (current) drug therapy
CPT/HCPCS: 36415; 51702; 71250; 74178; 80053; 81003; 81015; 83605; 85025; 87040; 87086; 96361; 96374; 96375; 96376; J2405; J3010; J3490

== ENCOUNTER 2018-02-26 12:43 | Outpatient (CLI) | payer MEDICARE, OTHER ==
[2018-02-26 14:15] LABS: Mean Corpuscular HGB CONC 33.9 g/dL (32.0-36.0); Mean Corpuscular Hemoglobin 31.6 pg (27.0-31.0); Mean Corpuscular Volume 93.1 fL (78.0-98.0); Mean Platelet Volume 9.8 fL (7.4-10.4); Platelet Count 272 thou/uL (130-400); RBC Distribution Width 12.2 % (11.5-14.5); Red Blood Cell (RBC) Count 4.43 mill/uL (4.20-5.40); White Blood Cell (WBC) Count 12.3 thou/uL (4.8-10.8)
[2018-02-26 14:20] LABS: INR-International Normal Ratio 1.1; PTT 28.3 SEC (22.9-36.1); Prothrombin Time 13.8 SEC (12.0-14.7)
[2018-02-26 14:35] LABS: Anion Gap 14 mmol/L (10-20); BUN (Urea Nitrogen) 26 mg/dL (9.8-20.1); Calc. Creatinine Clearance 0 mL/min (70-130); Calcium 9.8 mg/dL (7.8-10.44); Carbon Dioxide 24 mmol/L (23-31); Chloride 104 mmol/L (98-107); Estimated GFR-MDRD 42; Glucose 198 mg/dL (83-110); Potassium 3.8 mmol/L (3.5-5.1); Sodium 138 mmol/L (136-145)
== END 2018-02-26 12:44 | disposition home or self-care (01) ==
LOC: LABBT 12:43
PROVIDERS: ATTEND Urology
DX: Z01.818 Encounter for other preprocedural examination (principal); R31.0 Gross hematuria; N28.89 Other specified disorders of kidney and ureter
CPT/HCPCS: 80048; 85027; 85610; 85730; 86850; 86900; 86901; 93005; 93010

== ENCOUNTER 2018-03-02 07:21 | Day surgery (SDC) | payer MEDICARE, OTHER ==
[2018-02-26 13:04] VITALS: BMI 29.7
[2018-03-02] MEDS ORDERED: Iothalamate Meglumine 60% 50 ML VIAL FS ONE (09:21)
[2018-03-02] MEDS ORDERED: Fentanyl 100 MCG/2 ML VIAL ONE ×2 (09:29→09:54)
[2018-03-02] MEDS ORDERED: Levofloxacin 500 mg/D5W 100 ml Premix Bag ONE (09:40)
[2018-03-02] MEDS ORDERED: SUGAMMADEX SODIUM 200 MG/2 ML VIAL ONE (11:23)
[2018-03-02] MEDS ORDERED: Promethazine HCl 25 MG/ML VIAL SLOW IVP PRN (11:34)
[2018-03-02] MEDS ORDERED: Ondansetron HCl/PF 4 MG/2 ML Vial IVP PRN (11:34)
[2018-03-02] MEDS ORDERED: Promethazine HCl 25 MG/ML VIAL IM PRN (11:34)
[2018-03-02] MEDS ORDERED: Oxybutynin 5 MG TAB ONE (11:53)
[2018-03-02] MEDS ORDERED: Phenazopyridine HCl 97.5 MG TABLET ONE (11:53)
[2018-03-02] MEDS ORDERED: Ondansetron PF 4 MG/2 ML Vial ONE ×2 (12:00→15:07)
[2018-03-02] MEDS ORDERED: Metoclopramide HCl 10 MG/2 ML VIAL ONE (12:13)
--- NOTE | 2018-03-02 12:32 | RAD ---
RETROGRADE PYELOGRAM: Three fluoroscopic views presented from OR during retrograde procedure. Indications: Stent placement. PROCEDURE: Initial real estate agency licensee view reveals a focal density in the right abdomen which has a linear configuration and is external to the collecting structures as noted on subsequent films. Etiology is undetermined. The second image shows opacification of the right collecting structures. There is no hydronephrosis o r filling defect seen. Subsequent images show stent and wire in the right ureter. POS: JOAQUÍN
[2018-03-02] MEDS ORDERED: traMADol HCl 50 MG TAB ONE (13:44)
[2018-03-02] MEDS ORDERED: Glycopyrrolate 0.2 MG/ML 5 ML SYRINGE ONE (15:07)
[2018-03-02] MEDS ORDERED: PROPOFOL 200 MG/20 ML VIAL ONE (15:07)
[2018-03-02] MEDS ORDERED: Dexamethasone 20 MG/5 ML VIAL ONE (15:07)
[2018-03-02] MEDS ORDERED: Lidocaine 1% PF 5 ML VIAL ONE (15:07)
[2018-03-02] MEDS ORDERED: Metoprolol Tartrate 5 MG/5 ML VIAL ONE (15:07)
--- NOTE | 2018-03-02 18:14 | OP ---
DATE OF PROCEDURE: 03/02/2018 PREOPERATIVE DIAGNOSES: 1. A 72-year-old female presented with gross hematuria, workup in the emergency room demonstrating large right renal mass measuring 7.7 x 8.0 x 6.1 cm, suspicious for renal cell carcinoma. 2. Right lower pole midpole Bosniak II hyperdense renal cyst. 3. History of gross hematuria. POSTOPERATIVE DIAGNOSES: 1. A 72-year-old female presented with gross hematuria, workup in the emergency room demonstrating large right renal mass measuring 7.7 x 8.0 x 6.1 cm, suspicious for renal cell carcinoma. 2. Right lower pole midpole Bosniak II hyperdense renal cyst. 3. History of gross hematuria. PROCEDURES: 1. Cystoscopy, evacuation of bladder clot, bladder biopsy, fulguration of biopsy site, right retrograde pyelogram, dilation of the right intramural ureter, diagnostic ureteroscopy, pyeloscopy, a 6 x 24 double-J ureteral stent placement. Right renal pelvic cytology for FISH. ANESTHESIA: General. COMPLICATIONS: None apparent. DISPOSITION: To recovery room in stable condition. SPECIMEN: 1. Right renal pelvic cytology for FISH. 2. Bladder biopsy. DRAINS: A 22-Chilean 3-way Mcmahon catheter with CBI port plugged, to gravity leg bag. INDICATIONS FOR THE PROCEDURE AND HISTORY: Ms. Thorpe is a 72-year-old female, who presented to the emergency room on February 26 with history of gross hematuria. Mcmahon catheter was placed by the emergency room with initial postvoid residual 150 mL. They irrigated her Mcmahon catheter upon placement and cleared small amount of clots and subsequently demonstrated clear yellow urine output. She had been treated for presumed UTI since July of 2017 by primary care physician. Related 10 pack- year smoking history, quit in the 1970s. She had an indwelling Mcmahon catheter placement, which upon exam in the emergency room was concentrated yellow. CT demonstrated a large right renal mass, which I advised to obtain while she presented with gross hematuria. This demonstrated a large renal mass as above and a CT of the chest has been obtained demonstrating tiny pulmonary lesions not amenable to biopsy. She presents today for diagnostic cystoscopy due to presenting gross hematuria to rule out occult bladder pathology and a diagnostic ureteroscopy to rule out possible TCC component of the renal pelvis. Risks and complications and indications were reviewed with her in detail including, but not limited to, bleeding, pain, infection, injury to adjacent organs, urosepsis, stricture formation, bladder, renal, kidney, ureteral injury, PE, DVT. Operative morbidity and mortality reviewed. All questions were answered to her satisfaction. She has desired to proceed. DESCRIPTION OF PROCEDURE: After an informed consent was signed, the patient was taken to the operating room, placed in a dorsal lithotomy position with the genital area prepped and draped in the usual surgical sterile fashion. Her presenting Mcmahon catheter was removed demonstrating concentrated yellow urine. This was removed , and she was formally prepped and draped and broad-spectrum antibiotics were provided. Bilateral OBIE hose SCDs were again placed. A 21-Chilean cystoscope was utilized for cystoscopy demonstrating normal urethra. The bladder was entered, which demonstrated a moderate-sized blood clot, which appeared to be old and organized. It was free-floating. This was easily evacuated with a 25-Chilean sheath cystoscope. Upon assessment, the bladder with the 30 and 70-degree lens, I did not see any lesions concerning for malignancy. At the posterior right lateral wall, there appeared to be some trauma from the previous Mcmahon catheter with irrigation as there was a small mucosal defect with no evidence of perforation. There was evidence of mucosa denuded likely consistent with prior irrigation and evacuation of blood clot. The mucosa was somewhat denuded, which I did biopsy for tissue diagnosis. The area was cauterized using 26-Chilean resectoscope gyrus bladder loop. The surface area was cauterized to obtain good hemostasis. As I ruled the bladder out for obvious occult bladder mass, the UOs were identified and located in normal orthotopic position. A right retrograde pyelogram was performed, which demonstrated no evidence of filling defect in the ureter itself. Retrograde pyelogram of the collecting system demonstrates a mass effect of the renal calyx consistent with a large renal mass consistent with the CT scan. A 0.035 Sensor wire was placed into the right upper pole and using a [employer] 4 cm 12-Chilean balloon dilator, the intramural was dilated. She dilated with ease and subsequently I was able to pass a 10-Chilean dual-lumen access sheath at the level of the proximal ureter. A second safety wire with a 0.035 Sensor wire was placed into the right collecting system with ease. At this time, an 11/13-Chilean by 28-Chilean navigator was able to be passed without difficulty. Flexible ureteroscope was then advanced over the safety wire. With the working wire removed, we inspected the collecting system. There was a moderate amount of clots in the renal collecting system. We were able to irrigate some of the clots out for visualization of the collecting system. I did not see any obvious papillary lesions concerning for occult TCC of the upper tract. What appeared to me is that there is bulging of the collecting system. A next section of the mid to upper pole demonstrating a mass effect from a renal mass. One of the calices in the mid pole was difficult to visualize as there was an adherent clot. We tried our best to irrigate some of these clots, however, they were difficult to evacuate. I was able to see what appeared to be a normal mucosa of the calyx, which did not demonstrate obvious evidence of papillary TCC infiltrating mass. Although suboptimal, it appears that the mass is consistent with renal cell carcinoma primary. I did obtain FISH cytology for workup of the barbotage of the renal pelvic specimen. We did inspect the collecting system steadfast despite some clots to see if there are any occult TCC lesions. I did not see any of concern. These clots were difficult to remove complete as they tend to slip away with biopsy forceps and with the basket. As it did not appear that she had obvious TCC of concern, pyeloscopy was terminated at this point. The ureter was surveyed, which demonstrated no evidence of ureteral lesion of concern. A 6 x 24 double-J ureteral stent was passed without difficulty and all wires were removed and appropriate placement was confirmed on cystoscopy and on fluoroscopy. We again inspected the bladder mucosa at the biopsy site, which demonstrated good hemostasis and a 22-Chilean 3-way Mcmahon catheter was placed. CBI port is plugged and leg bag gravity bag is placed. I do expect the patient to have intermittent gross hematuria as she likely has renal cell carcinoma infiltrating the collecting system causing intermittent hematuria. Pending cytology, biopsy results, I will discuss the patient to schedule right nephrectomy. She will be discharged to continue her VESIcare for bladder spasm, tramadol 50 mg, #40 provided, Colace, ciprofloxacin 500 for course of 7 days. Job ID: [id number] [facility]
== END 2018-03-02 14:25 | disposition home or self-care (01) ==
LOC: SDC 07:21
PROVIDERS: ATTEND Urology
PROC: 0TCB8ZZ Extirpation of Matter from Bladder, Via Natural or Artificial Opening Endoscopic (ICD-10-PCS; principal; 2018-03-02)
PROC: 0TBB8ZX Excision of Bladder, Via Natural or Artificial Opening Endoscopic, Diagnostic (ICD-10-PCS; 2018-03-02)
PROC: 0TJ58ZZ Inspection of Kidney, Via Natural or Artificial Opening Endoscopic (ICD-10-PCS; 2018-03-02)
DX: N30.00 Acute cystitis without hematuria (principal); N32.89 Other specified disorders of bladder; N28.89 Other specified disorders of kidney and ureter; I10 Essential (primary) hypertension; Z87.891 Personal history of nicotine dependence; Z79.899 Other long term (current) drug therapy; Z88.5 Allergy status to narcotic agent; Z88.8 Allergy status to other drugs, medicaments and biological substances; Z91.048 Other nonmedicinal substance allergy status
CPT/HCPCS: 74420; 88304; 88305; 96374; C1758; C1769; J1100; J1956; J2001; J2405; J2704; J2765; J3010; Q9961

== ENCOUNTER 2018-03-03 06:21 | Outpatient (CLI) | payer MEDICARE, OTHER ==
[2018-03-03 15:59] LABS: Hemoglobin 13.4 g/dL (12.0-16.0); Mean Corpuscular HGB CONC 33.9 g/dL (32.0-36.0); Mean Corpuscular Hemoglobin 31.9 pg (27.0-31.0); Mean Corpuscular Volume 94.3 fL (78.0-98.0); Mean Platelet Volume 9.9 fL (7.4-10.4); Platelet Count 267 thou/uL (130-400); RBC Distribution Width 12.2 % (11.5-14.5); White Blood Cell (WBC) Count 13.8 thou/uL (4.8-10.8)
[2018-03-03 16:08] LABS: PTT 26.3 SEC (22.9-36.1); Prothrombin Time 13.3 SEC (12.0-14.7)
[2018-03-03 16:20] LABS: Anion Gap 14 mmol/L (10-20); BUN (Urea Nitrogen) 24 mg/dL (9.8-20.1); Calc. Creatinine Clearance 0 mL/min (70-130); Calcium 10.2 mg/dL (7.8-10.44); Carbon Dioxide 25 mmol/L (23-31); Chloride 104 mmol/L (98-107); Estimated GFR-MDRD 35; Glucose 128 mg/dL (83-110); Potassium 4.2 mmol/L (3.5-5.1); Sodium 139 mmol/L (136-145)
--- NOTE | 2018-03-03 18:17 | RAD ---
PA AND LATERAL CHEST X-RAY: 03/03/18 HISTORY: Preoperative evaluation. COMPARISON: 04/15/17. FINDINGS: The cardiac silhouette and pulmonary vasculature are within normal limits. There is a small pulmonary nodule seen at the right lung base, better visualized on CT exam on 02/25/18. Pulmonary nodule measur es 6 mm. Lungs are otherwise clear. A right ureteral stent is partially imaged. Vascular calcificatio ns are seen in the thoracic aorta. Mild degenerative changes are seen in the spine. Surgical clips ov erlie the right upper quadrant. IMPRESSION: 1. Small approximately 6 mm pulmonary nodule right lung base. 2. No acute cardiopulmonary process. 3. Partial visualization of right ureteral stent. POS: [facility]
== END 2018-03-03 06:22 | disposition home or self-care (01) ==
LOC: LABBT 06:21
PROVIDERS: ATTEND Urology
DX: Z01.818 Encounter for other preprocedural examination (principal); R91.1 Solitary pulmonary nodule; Z96.0 Presence of urogenital implants
CPT/HCPCS: 71046; 80048; 85027; 85610; 85730; 86850; 86900; 86901; 93005; 93010

== ENCOUNTER 2018-03-03 11:15 | Inpatient (IN) | payer MEDICARE, OTHER ==
[2018-03-03 15:59] LABS: Hemoglobin 13.4 g/dL (12.0-16.0); Mean Corpuscular HGB CONC 33.9 g/dL (32.0-36.0); Mean Corpuscular Hemoglobin 31.9 pg (27.0-31.0); Mean Corpuscular Volume 94.3 fL (78.0-98.0); Mean Platelet Volume 9.9 fL (7.4-10.4); Platelet Count 267 thou/uL (130-400); RBC Distribution Width 12.2 % (11.5-14.5); White Blood Cell (WBC) Count 13.8 thou/uL (4.8-10.8)
[2018-03-03 16:08] LABS: PTT 26.3 SEC (22.9-36.1); Prothrombin Time 13.3 SEC (12.0-14.7)
[2018-03-03 16:20] LABS: Anion Gap 14 mmol/L (10-20); BUN (Urea Nitrogen) 24 mg/dL (9.8-20.1); Calc. Creatinine Clearance 0 mL/min (70-130); Calcium 10.2 mg/dL (7.8-10.44); Carbon Dioxide 25 mmol/L (23-31); Chloride 104 mmol/L (98-107); Estimated GFR-MDRD 35; Glucose 128 mg/dL (83-110); Potassium 4.2 mmol/L (3.5-5.1); Sodium 139 mmol/L (136-145)
[2018-03-06] MEDS ORDERED: CEFAZOLIN 2 GM/50 ML BAG ONE (09:04)
[2018-03-06] MEDS ORDERED: Levofloxacin 500 mg/D5W 100 ml Premix Bag ONE (09:04)
[2018-03-06] MEDS ORDERED: Fentanyl 100 MCG/2 ML VIAL ONE ×3 (10:37→15:22)
[2018-03-06] MEDS ORDERED: Midazolam HCl 2 mg/2 ml Vial ONE (10:37)
[2018-03-06] MEDS ORDERED: PHENYLEPHRINE-NS 100 MCG/ML 10 ML SYRINGE ONE (11:15)
[2018-03-06] MEDS ORDERED: Glycopyrrolate 0.2 MG/ML 5 ML SYRINGE ONE (11:15)
[2018-03-06] MEDS ORDERED: Promethazine HCl 25 MG SUPP PR PRN (11:15)
[2018-03-06] MEDS ORDERED: ePHEDrine/0.9% NaCl/PF SYRINGE 50 mg/10 ml ONE (11:15)
[2018-03-06] MEDS ORDERED: PROPOFOL 200 MG/20 ML VIAL ONE (11:15)
[2018-03-06] MEDS ORDERED: diphenhydrAMINE 50 MG/ML VIAL IM PRN (11:15)
[2018-03-06] MEDS ORDERED: diphenhydrAMINE 50 MG/ML VIAL IVP PRN (11:15)
[2018-03-06] MEDS ORDERED: Hydrocerin (Eucerin) Cream 120 gm Jar TOP PRN (11:15)
[2018-03-06] MEDS ORDERED: Lidocaine 1% PF 5 ML VIAL ONE (11:15)
[2018-03-06] MEDS ORDERED: Ondansetron PF 4 MG/2 ML Vial IVP PRN (11:15)
[2018-03-06] MEDS ORDERED: Ondansetron PF 4 MG/2 ML Vial ONE (11:15)
[2018-03-06] MEDS ORDERED: Zolpidem Tartrate 5 MG TAB PO PRN (11:15)
[2018-03-06] MEDS ORDERED: Fentanyl/Bupivacaine 100 ML EPIDURAL SCH (11:15)
[2018-03-06] MEDS ORDERED: Naloxone HCl 0.4 mg/ml Vial IVP PRN (11:15)
[2018-03-06] MEDS ORDERED: traMADol HCl 50 MG TAB PO PRN ×2 (11:15)
[2018-03-06] MEDS ORDERED: Promethazine HCl 25 MG/ML VIAL IM PRN ×2 (11:15→12:40)
[2018-03-06] MEDS ORDERED: Bupivacaine 0.25% 10 ML VIAL EPIDURAL PRN (11:15)
[2018-03-06] MEDS ORDERED: Rocuronium Bromide 10 MG/ML (10ML VIAL) ONE (11:15)
[2018-03-06] MEDS ORDERED: Naloxone HCl 0.4 mg/ml Vial IV PRN (11:15)
[2018-03-06] MEDS ORDERED: Bupivacaine/Epinephrine 0.25% 30 ML VIAL ONE (11:47)
[2018-03-06] MEDS ORDERED: Promethazine HCl 25 MG/ML VIAL SLOW IVP PRN (12:40)
[2018-03-06] MEDS ORDERED: Ondansetron HCl/PF 4 MG/2 ML Vial IVP PRN (12:40)
[2018-03-06] MEDS ORDERED: Gentamicin 80 MG/2 ML VIAL ONE (13:22)
[2018-03-06] MEDS ORDERED: hydrALAZINE 20 MG/ML VIAL SLOW IVP PRN ×2 (15:08)
[2018-03-06] MEDS ORDERED: Bisacodyl 10 MG SUPP PR PRN (15:08)
[2018-03-06] MEDS ORDERED: Mag-Al 1200 mg/1200 mg/30 ML UDCUP PO PRN (15:08)
[2018-03-06] MEDS ORDERED: cefTRIAXone\\ROCEPHIN 1 GM in Sodium Chloride 0.9% 100 ML IVPB SCH (15:15)
[2018-03-06] MEDS ORDERED: Promethazine HCl 25 MG/ML VIAL ONE (15:17)
[2018-03-06] MEDS ORDERED: Fentanyl/Bupivacaine 100 ML EPIDURAL ONE (15:46)
--- NOTE | 2018-03-06 15:47 | RAD ---
RADIOGRAPH CHEST 1 VIEW: Date: 03/06/18 Time: 1505 HOURS HISTORY: 72-year-old female for postoperative evaluation. COMPARISON: 03/03/18. FINDINGS: This is a supine image, which would be insensitive for pneumothorax detection. There is a new finding of dense opacification at the left lateral lung base, completely effacing the left lateral costophre judy angle. A thin, long wire descends diagonally from the left neck, crosses slightly to the right of midline in the mediastinum, with right side curled overlying the right upper cardiac shadow. No pulm onary edema. IMPRESSION: 1. New, elongated, thin wire overlying the chest. 2. New dense opacification of left lateral base, which may represent atelectasis. 3. Recommend follow-up. JN [] POS: [facility]
[2018-03-06 15:58] LABS: #Eosinphils 0.1 thou/uL (0.0-0.7); #Monocytes 1.2 thou/uL (0.11-0.59); #Neutrophils 9.6 thou/uL (1.40-6.50); %Eosinophils 0.6 % (0.0-10.0); %Lymphocytes 8.7 % (21.0-51.0); %Neutrophils 80.7 % (42.0-75.0); Hemoglobin 10.6 g/dL (12.0-16.0); Mean Corpuscular HGB CONC 34.3 g/dL (32.0-36.0); Mean Corpuscular Hemoglobin 32.3 pg (27.0-31.0); Mean Corpuscular Volume 94.1 fL (78.0-98.0); Mean Platelet Volume 9.9 fL (7.4-10.4); Platelet Count 214 thou/uL (130-400); RBC Distribution Width 12.1 % (11.5-14.5); Red Blood Cell (RBC) Count 3.29 mill/uL (4.20-5.40); White Blood Cell (WBC) Count 11.9 thou/uL (4.8-10.8)
[2018-03-06 16:13] LABS: Anion Gap 15 mmol/L (10-20); BUN (Urea Nitrogen) 16 mg/dL (9.8-20.1); Calc. Creatinine Clearance 46 mL/min (70-130); Calcium 7.9 mg/dL (7.8-10.44); Carbon Dioxide 21 mmol/L (23-31); Chloride 106 mmol/L (98-107); Estimated GFR-MDRD 44; Glucose 188 mg/dL (83-110); Potassium 3.7 mmol/L (3.5-5.1); Sodium 138 mmol/L (136-145)
[2018-03-06] MEDS: Sodium Chloride 0.9% 1,000 ML IV SCH (18:14)
[2018-03-06] MEDS: Acetaminophen 1,000 MG in Premix Bag 1 BAG IVPB SCH ×2 (18:16→18:30)
[2018-03-06] MEDS: Cefepime 2 GM in Sodium Chloride 0.9% 100 ML IVPB SCH (18:50)
--- NOTE | 2018-03-06 22:16 | OP ---
DATE OF PROCEDURE: 03/06/2018 PREOPERATIVE DIAGNOSES: 1. A 72-year-old female with history of gross hematuria, secondary to large 8 cm renal mass. 2. Right mid pole Bosniak II renal cystic lesion. 3. History of pulmonary nodule, not amenable to biopsy at this time. POSTOPERATIVE DIAGNOSES: 1. A 72-year-old female with history of gross hematuria, secondary to large 8 cm renal mass. 2. Right mid pole Bosniak II renal cystic lesion. 3. History of pulmonary nodule, not amenable to biopsy at this time. PROCEDURE PERFORMED: Right radical nephrectomy. STEMHOLE BORER AND TOPPER: Dr. Mp Toth. ANESTHESIA: General epidural. COMPLICATIONS: None apparent. DISPOSITION: To recovery room in stable condition. FINDINGS: 1. Large right renal mass with densely adherent reaction of the peritoneum secondary to renal mass. 2. Multiple parasitic vessels consistent with renal cell carcinoma. SPECIMEN: Right kidney, portions of the proximal ureter contents of Geroto Facsia INDICATIONS FOR PROCEDURE AND HISTORY: Ms. Thorpe is a pleasant 72-year-old female who presented to the emergency room on 02/26 due to history of gross hematuria, prior history of recurrent UTI. Upon further history, she had been treated for possible recurrent UTI due to gross hematuria. I asked the emergency room to obtain a CT of the abdomen and pelvis as she presented with gross hematuria. Unfortunately, the CT scan demonstrated a large mesophytic cystic renal mass abutting the collecting system resulting in hematuria. As she did present with gross hematuria, she did undergo subsequent workup with cystoscopy, ureteroscopy. Bladder biopsy for denuded bladder mucosa demonstrates no malignancy, this is most likely due to irrigation of the bladder that was performed upon arrival by the ER staff, pyeloscopy demonstrated no infiltrating calyceal tumor of concern. Cytology, FISH negative. She presents today for right radical nephrectomy. Risks, complications, and indications for the procedure were reviewed with her in detail including, but not limited to, bleeding, pain, infection, injury to adjacent organs, urosepsis, possible permanent versus temporary renal failure requiring hemodialysis, PE, DVT, perioperative morbidity, mortality, incisional complications such as bulge, chronic pain, paresthesia, hernia, PE, DVT, perioperative morbidity, mortality was reviewed. All questions were answered to their satisfaction and they desired to proceed. DESCRIPTION OF PROCEDURE: After an informed consent was signed, the patient was taken to the operating room, placed in a supine position. Epidural was provided in the preoperative area. She underwent general endotracheal anesthesia. Bilateral OBIE hose, SCDs, and broad-spectrum antibiotics were provided. A Mcmahon catheter was secured to gravity bag. The patient was placed in a right flank position. Using a ordaz bag, she was secured. All pressure points were padded and protected at all times. We utilized sub R11 extraperitoneal incision from the level of the paraspinous muscle anteriorly. The subcutaneous fascia was opened to the limits of skin incision. Using the bed of the 12th rib as a guide, we made an incision through the external internal oblique just underneath the 11th rib. The rib was retracted with Bookwalter retraction. We then entered the retroperitoneal space. The psoas muscle was identified. The ureter was easily identified as she had an indwelling ureteral stent. We isolated the ureter for further mobilization. Of note, her peritoneum was densely adherent as she had a large right mid pole anterior renal mass. She had multiple parasitic vessels that required hemostasis as we encountered the dissection. The peritoneum was mobilized completely off the superior pole of the kidney. It appeared to have some desmoplastic reaction due to a large renal tumor. We sharply dissected the peritoneum off the kidney. Using sharp and blunt dissection, we mobilized the upper pole of the kidney. We were able to identify the single right renal artery consistent with the CT scan. This was sharply dissected and ligated with 0 silk tie. We further divided the lower pole completely mobilizing the kidney so that the hilar attachments were in situ. Using a diane load vascular stapler 45 mm, we divided the hilum complete for good hemostasis. There was a small parasitic vessel near the IVC, which we ligated with 2-0 silk and staple. We watched the area for good hemostasis and there was no evidence of bleeding from the staple line or sutures. Floseal was placed in the bed of the hilum. Prior to placing FloSeal, we copiously irrigated the wound and filled the incision with sterile water. Positive pressure was provided by Anesthesia and checked for pleura leak, which demonstrated no evidence of pleural defect. The wound was then copiously irrigated before FloSeal. Surgicel was placed on top. The incision was closed in 2 layers using one PDS. The skin was closed with skin peggy. She tolerated the procedure well and transported to the recovery room and extubated in stable condition. All sponge counts and instruments were accounted for. Job ID: [id number] [facility]
[2018-03-06] MEDS: Melatonin 3 MG TAB PO SCH (22:22)
[2018-03-06] MEDS: Docusate 100 MG CAP PO SCH (22:22)
[2018-03-06] MEDS: Famotidine/PF 20 mg/2ml Vial SLOW IVP SCH (22:25)
[2018-03-07] MEDS: Metoprolol Tartrate 100 MG TAB PO SCH ×3 (01:04→21:22)
[2018-03-07 06:13] LABS: #Monocytes 1.2 thou/uL (0.11-0.59); #Neutrophils 5.2 thou/uL (1.40-6.50); %Basophils 0.1 % (0.0-1.0); %Eosinophils 0.5 % (0.0-10.0); %Lymphocytes 23.7 % (21.0-51.0); %Monocytes 14.6 % (0.0-10.0); %Neutrophils 61.1 % (42.0-75.0); Hemoglobin 9.7 g/dL (12.0-16.0); Mean Corpuscular HGB CONC 33.6 g/dL (32.0-36.0); Mean Corpuscular Hemoglobin 32.3 pg (27.0-31.0); Mean Corpuscular Volume 96.2 fL (78.0-98.0); Mean Platelet Volume 9.5 fL (7.4-10.4); Platelet Count 180 thou/uL (130-400); RBC Distribution Width 12.2 % (11.5-14.5); Red Blood Cell (RBC) Count 2.99 mill/uL (4.20-5.40); White Blood Cell (WBC) Count 8.5 thou/uL (4.8-10.8)
[2018-03-07] MEDS: Fentanyl/Bupivacaine 100 ML EPIDURAL SCH ×2 (06:24→19:27)
[2018-03-07 06:33] LABS: Anion Gap 9 mmol/L (10-20); BUN (Urea Nitrogen) 17 mg/dL (9.8-20.1); Calc. Creatinine Clearance 37 mL/min (70-130); Calcium 7.4 mg/dL (7.8-10.44); Carbon Dioxide 24 mmol/L (23-31); Chloride 109 mmol/L (98-107); Estimated GFR-MDRD 34; Glucose 120 mg/dL (83-110); Potassium 3.9 mmol/L (3.5-5.1); Sodium 138 mmol/L (136-145)
[2018-03-07] MEDS: Cefepime 2 GM in Sodium Chloride 0.9% 100 ML IVPB SCH ×2 (06:35→18:04)
[2018-03-07] MEDS: Acetaminophen 1,000 MG in Premix Bag 1 BAG IVPB SCH ×3 (06:35→12:16)
[2018-03-07] MEDS: Docusate 100 MG CAP PO SCH ×2 (08:34→21:22)
[2018-03-07] MEDS: Furosemide 20 MG TAB PO SCH ×2 (08:34→13:20)
[2018-03-07] MEDS: diphenhydrAMINE 25 MG CAP PO PRN ×3 (10:29→21:22)
--- NOTE | 2018-03-07 12:54 | PRG ---
DATE OF SERVICE: 03/07/2018 SUBJECTIVE: The patient states that she had a good night. She had very little pain secondary to her epidural. She has not had any nausea, vomiting, or fevers. She has been on bedrest overnight, has not been permitted to walk. She does not have much of an appetite right now and has not passed any gas. OBJECTIVE: VITAL SIGNS: Temperature 99.3, pulse 86, respirations 12, blood pressure 127/58, and saturation 93% on room air. GENERAL: No apparent distress, communicating, and alert. CARDIOVASCULAR: Regular rate and rhythm. ABDOMEN: Soft, nontender, nondistended. Incision is clean, dry, and intact with dressing in place. : Mcmahon catheter is clear without any blood. EXTREMITIES: No clubbing, cyanosis, or edema. SCDs in place. LABORATORY DATA: On laboratory evaluation, the full set of labs was in the [employer] system which I reviewed. Of note, the patient's white count is 8.5 with hemoglobin of 9.7. Creatinine is currently 1.52. Chest x-ray from this morning demonstrates no evidence of pneumothorax and some clearing of the previously noted opacification on the left, which has slightly improved from prior x-ray. ASSESSMENT AND PLAN: A 72-year-old white female with likely right renal cell carcinoma, status post right radical nephrectomy, postop day 1. She has some atelectasis, which is resolving. This may account for the slightly high temperature, although she is not febrile. I have encouraged her to use her incentive spirometer, which should help her oxygen saturations as well as keep her temperature down. Her hemoglobin is relatively stable and is not indicative of any kind of arterial venous bleeding. I think it would be beneficial for her to get up out of bed and start walking today with assistance and a walking program to avoid deep venous thromboses. We will continue to monitor her hemoglobin. I would keep her on clear liquid diet for now. She does not have much of an appetite and has not had much grumbling in her stomach, but her diet can be advanced as tolerated based on her appetite and bowel sounds. The epidural will stay in along with Mcmahon catheter at least until around Friday, at which point, this can start being weaned. I will continue to monitor and make recommendations regarding her recovery. I will continue to cover as well until Dr. Roberts returns on Friday. Job ID: [id number]
[2018-03-07] MEDS: Amlodipine 10 MG TAB PO SCH (13:20)
--- NOTE | 2018-03-07 13:24 | RAD ---
TWO VIEW CHEST: INDICATION: Left lung atelectasis. COMPARISON: 03/06/2018. FINDINGS: The lungs appear clear. The left lower lobe opacification noted yesterday has resolved indicating pr obable resolution of atelectasis. Heart and mediastinum unremarkable. Vascular markings are normal. There is a radiopaque lead device noted posteriorly. IMPRESSION: The left basilar opacification has resolved. POS: [facility]
[2018-03-07] MEDS: Sodium Chloride 0.9% 1,000 ML IV SCH ×3 (13:38→21:22)
[2018-03-07] MEDS: Calcium Carbonate 500 MG ChewTAB PO PRN (18:10)
[2018-03-07] MEDS: Famotidine/PF 20 mg/2ml Vial SLOW IVP SCH (21:22)
[2018-03-07] MEDS: Melatonin 3 MG TAB PO SCH (21:34)
[2018-03-08] MEDS: Sodium Chloride 0.9% 1,000 ML IV SCH ×5 (01:45→20:20)
[2018-03-08] MEDS: Cefepime 2 GM in Sodium Chloride 0.9% 100 ML IVPB SCH ×2 (04:15→16:49)
[2018-03-08 06:10] LABS: #Eosinphils 0.2 thou/uL (0.0-0.7); #Lymphocytes 1.7 thou/uL (1.20-3.40); #Monocytes 1.4 thou/uL (0.11-0.59); #Neutrophils 8.9 thou/uL (1.40-6.50); %Basophils 0.3 % (0.0-1.0); %Eosinophils 1.8 % (0.0-10.0); %Monocytes 11.5 % (0.0-10.0); %Neutrophils 72.4 % (42.0-75.0); Hemoglobin 10.2 g/dL (12.0-16.0); Mean Corpuscular HGB CONC 33.2 g/dL (32.0-36.0); Mean Corpuscular Hemoglobin 32.3 pg (27.0-31.0); Mean Corpuscular Volume 97.2 fL (78.0-98.0); Mean Platelet Volume 9.4 fL (7.4-10.4); Platelet Count 211 thou/uL (130-400); RBC Distribution Width 12.3 % (11.5-14.5); Red Blood Cell (RBC) Count 3.15 mill/uL (4.20-5.40); White Blood Cell (WBC) Count 12.3 thou/uL (4.8-10.8)
[2018-03-08 06:28] LABS: Anion Gap 8 mmol/L (10-20); BUN (Urea Nitrogen) 15 mg/dL (9.8-20.1); Calc. Creatinine Clearance 34 mL/min (70-130); Calcium 7.9 mg/dL (7.8-10.44); Carbon Dioxide 21 mmol/L (23-31); Chloride 112 mmol/L (98-107); Estimated GFR-MDRD 31; Glucose 102 mg/dL (83-110); Potassium 4.4 mmol/L (3.5-5.1); Sodium 137 mmol/L (136-145)
[2018-03-08] MEDS: Fentanyl/Bupivacaine 100 ML EPIDURAL SCH ×2 (06:38→19:02)
[2018-03-08] MEDS: Amlodipine 10 MG TAB PO SCH (08:42)
[2018-03-08] MEDS: Furosemide 20 MG TAB PO SCH (08:42)
[2018-03-08] MEDS: Metoprolol Tartrate 100 MG TAB PO SCH ×2 (08:42→20:20)
[2018-03-08] MEDS: diphenhydrAMINE 25 MG CAP PO PRN ×5 (08:43→22:50)
[2018-03-08] MEDS: Docusate 100 MG CAP PO SCH ×2 (08:43→20:52)
--- NOTE | 2018-03-08 12:17 | PRG ---
DATE OF SERVICE: 03/08/2018 SUBJECTIVE: The patient is doing quite well. She walked today with a walking program and was able to go 250 feet. She denies any nausea or vomiting. She has passed gas. She does not have a strong appetite, but has been tolerating her liquids well. Her pain is well controlled with the epidural. She denies any chest pain or shortness of breath. OBJECTIVE: VITAL SIGNS: Temperature 100.2, pulse 96, respirations 18, blood pressure 146/72, and saturations 92% on room air. GENERAL: In no apparent distress. Communicating and alert. CARDIOVASCULAR: Regular rate and rhythm. CHEST: No increased work of breathing. Bibasilar crackles. ABDOMEN: Soft, nontender, and nondistended. Positive bowel sounds. Incision is clean, dry, and intact. : Mcmahon catheter with clear yellow urine. EXTREMITIES: No clubbing, cyanosis, or edema. SCDs in place. LABORATORY DATA: On laboratory evaluation, the full set of labs in the [employer] system which I have reviewed. Of note, the patient's white count is 12.3 with a hemoglobin of 10.2. Creatinine is 1.65. ASSESSMENT AND PLAN: A 72-year-old white female with right renal cell carcinoma, status post right radical nephrectomy, postop day #2, healing appropriately. I think her diet can be advanced as tolerated, and she should try some light regular foods today. She should continue to ambulate. Her kidney function has declined slightly further, but I think this is just stabilization of her overall kidney function. We will continue to monitor, and if it continues to progressively decline, we may consider giving her some IV fluids and consulting Nephrology. I have recommended she continue the SCDs and ambulation for DVT prophylaxis and use her incentive spirometer as she likely has atelectasis resulting in the low-grade temperatures that she is having. Dr. Roberts will resume care tomorrow and I will transfer care back over to her as that is her primary surgeon. Job ID: [id number]
[2018-03-08] MEDS: Melatonin 3 MG TAB PO SCH (20:52)
[2018-03-08] MEDS: Famotidine/PF 20 mg/2ml Vial SLOW IVP SCH (20:52)
[2018-03-09] MEDS: diphenhydrAMINE 25 MG CAP PO PRN (04:03)
[2018-03-09] MEDS: Sodium Chloride 0.9% 1,000 ML IV SCH (04:04)
[2018-03-09] MEDS: Cefepime 2 GM in Sodium Chloride 0.9% 100 ML IVPB SCH ×2 (04:04→17:34)
[2018-03-09] MEDS: Fentanyl/Bupivacaine 100 ML EPIDURAL SCH (05:29)
[2018-03-09 06:08] LABS: #Eosinphils 0.3 thou/uL (0.0-0.7); #Lymphocytes 1.7 thou/uL (1.20-3.40); #Monocytes 1.2 thou/uL (0.11-0.59); #Neutrophils 7.6 thou/uL (1.40-6.50); %Basophils 0.5 % (0.0-1.0); %Eosinophils 2.7 % (0.0-10.0); %Lymphocytes 15.7 % (21.0-51.0); %Monocytes 10.7 % (0.0-10.0); %Neutrophils 70.5 % (42.0-75.0); Hemoglobin 9.5 g/dL (12.0-16.0); Mean Corpuscular HGB CONC 32.9 g/dL (32.0-36.0); Mean Corpuscular Hemoglobin 31.8 pg (27.0-31.0); Mean Corpuscular Volume 96.6 fL (78.0-98.0); Mean Platelet Volume 8.9 fL (7.4-10.4); Platelet Count 187 thou/uL (130-400); RBC Distribution Width 12.1 % (11.5-14.5); Red Blood Cell (RBC) Count 2.97 mill/uL (4.20-5.40); White Blood Cell (WBC) Count 10.8 thou/uL (4.8-10.8)
[2018-03-09 06:22] LABS: Anion Gap 11 mmol/L (10-20); BUN (Urea Nitrogen) 18 mg/dL (9.8-20.1); Calc. Creatinine Clearance 37 mL/min (70-130); Calcium 7.8 mg/dL (7.8-10.44); Carbon Dioxide 18 mmol/L (23-31); Chloride 111 mmol/L (98-107); Estimated GFR-MDRD 34; Glucose 85 mg/dL (83-110); Potassium 4.1 mmol/L (3.5-5.1); Sodium 136 mmol/L (136-145)
--- NOTE | 2018-03-09 08:51 | PRG ---
DATE OF SERVICE: 03/09/2018 SUBJECTIVE: The patient is doing well. Denies nausea, vomiting, or fever. Has had a bowel movement. Denies no significant discomfort on epidural. OBJECTIVE: VITAL SIGNS: Vital signs are stable. She had a low-grade temperature of 100.2 over the weekend, however, she has been afebrile for 24 hours. T- current is 97.8, pulse 75, respirations 18, O2 sat 95% on room air, blood pressure is 126/67. Her BP medications were held over the weekend due to initial blood pressure being low with epidural, however, subsequently she has been running hypertensive , systolic running from 140 to 170, diastolic in the 60s and 70s. I's and O's; 3840 in and 1100 out. She is positive 2.7 L. LUNGS: Relatively clear. No gross atelectasis is appreciated. ABDOMEN: Soft. No rigidity. No rebound. Incision is clean, dry, and intact. There is some reactive edema with no evidence of hernia. No discharge. EXTREMITIES: No cyanosis, clubbing, or edema. Incision is clean, dry, and intact. PERTINENT LABORATORY DATA: Sodium of 136, potassium 4.1, BUN 18, creatinine is 1.5 from baseline of 1.2, status post nephrectomy. Pathology is pending. Followup chest x-ray PA and lateral on March 07 demonstrates left basilar opacification is resolved. No evidence of atelectasis. No evidence of fluid overload. Lungs clear. IMPRESSION AND PLAN: Ms. Thorpe is a 72-year-old female, postop day #3, status post right radical nephrectomy. I will talk to the Pain Service regarding epidural titration. As there is a possibility of epidural dc next day or two, I will hold Lovenox for now, pending her pain assessment. She is to have stay in bilateral SCDs, out of bed and walking program. 1. Renal insufficiency, status post nephrectomy, multifactorial. 2. Blood pressure hypertensive. I will resume her BP medications as her hypotension is resolved. 3. Acute renal insufficiency secondary to nephrectomy, multifactorial. will consult Nephrology as the patient previously was on SUMMER inhibitors as for control of her hypertension. I would prefer the patient not to resume her SUMMER inhibitors. Possible discharge likely tomorrow, pending epidural titration, and transitioning to oral pain medications. Job ID: [id number] [facility]
[2018-03-09] MEDS: Amlodipine 10 MG TAB PO SCH (09:01)
[2018-03-09] MEDS: Docusate 100 MG CAP PO SCH ×2 (09:01→20:27)
[2018-03-09] MEDS: Furosemide 20 MG TAB PO SCH (09:02)
[2018-03-09] MEDS: Metoprolol Tartrate 100 MG TAB PO SCH ×2 (09:02→20:26)
--- NOTE | 2018-03-09 10:06 | PQF ---
FELICITAS ROJASLENE SAMMYROGE DO [id number] [facility] A- 3336 [id number] CLINICAL DOCUMENTATION IMPROVEMENT CLARIFICATION FORM: ICD-10 Updated PLEASE DO AN ADDENDUM TO THE PROGRESS NOTE WITH ANY DOCUMENTATION UPDATES OR ADDITIONS AND CARRY THROUGH TO DC SUMMARY. THANK YOU. DATE: 03/09/2018 ATTN: DR. CHRISTIANSON Please exercise your independent, professional judgment in responding to the clarification form. Clinical indicators are provided on the bottom of this form for your review Please check appropriate box(s): [ ] Acute Renal Failure (ARF) / Acute Kidney Injury (SADIA) status post Nephrectomy; multifactorial [ ] Acute on Chronic Renal Failure please specify Stage of CKD [ ] CKD without ARF/SADIA please specify Stage of CKD [ ] Other diagnosis [ ] Unable to determine In addition, please specify: Present on Admission (POA): [ ] Yes [ ] No [ ] Unable to determine For continuity of documentation, please document condition throughout progress notes and discharge summary. Thank You. CLINICAL INDICATORS - SIGNS / SYMPTOMS / LABS CREATININE: 03/03/18: 1.48 03/06/18: 1.21 03/07/18: 1.52 03/08/18: 1.65 03/09/18: 1.52 03/08: HER KIDNEY FUNCTION HAS DECLINED SLIGHTLY FURTHER, BUT I THINK THIS IS JUST STABILIZATION OF HER OVERALL KIDNEY FUNCTION. RISK FACTORS RIGHT NEPHRECTOMY ON 03/06 WITH LIKELY RENAL CELL CARCINOMA PER OR REPORT TREATMENTS: IV FLUIDS CLOSE LAB MONITORING Nephrology consult Thank you, Saige (This form is maintained as a part of the permanent medical record) 2015 [employer] All Rights Reserved Saige Yanez RN, CDIS [email or web address] [phone] [place]
--- NOTE | 2018-03-09 10:22 | PQF ---
FELICITAS ROJASLENE SAMMYROGE DO [id number] [facility] A- 3336 [id number] CLINICAL DOCUMENTATION IMPROVEMENT CLARIFICATION FORM: ICD-10 Updated PLEASE DO AN ADDENDUM TO THE PROGRESS NOTE WITH ANY DOCUMENTATION UPDATES OR ADDITIONS AND CARRY THROUGH TO DC SUMMARY. THANK YOU. DATE: 03/09/2018 ATTN: DR. CHRISTIANSON Please exercise your independent, professional judgment in responding to the clarification form. Clinical indicators are provided on the bottom of this form for your review Please check appropriate box(s) to clarify if the following diagnosis has been ruled in or ruled out: ATELECTASIS AFTER PROCEDURE; RESOLVED [ ] Ruled in diagnosis [ ] Continue to treat [ ] Resolved [ ] Ruled out diagnosis [ ] Cannot rule out diagnosis [ ] Other diagnosis [ ] Unable to determine In addition, please specify: Present on Admission (POA): [ ] Yes [ ] No [ ] Unable to determine For continuity of documentation, please document condition throughout progress notes and discharge summary. Thank You. CLINICAL INDICATORS - SIGNS / SYMPTOMS / LABS 03/06-CXR: POSTOP EVAL. NEW FINDING OF DENSE OPACIFICATION AT THE LEFT LATERAL LUNG BASE, COMPLETELY EFFACING THE LEFT LATERAL COSTOPHRENIC ANGLE. 1-NEW DENSE OPACIFICATION OF LEFT LATERAL BASE, WHICH MAY REPRESENT ATELECTASIS. 03/07 Progress Note: LIKELY RIGHT RENAL CELL CARCINOMA S/P RIGHT RADICAL NEPHRECTOMY, POSTOP DAY 1. SHE HAS SOME ATELECTASIS WHICH IS RESOLVING. 03/07-CXR: tHE LEFT LOWER LOBE OPACIFICATION NOTED YESTERDAY HAS RESOLVED INDICATING PROBABLE RESOLUTION OF ATELECTASIS. LUNGS APPEAR CLEAR. RISK FACTORS S/P NEPHRECTOMY ON 03/06/18 LIKELY RENAL CELL CARCINOMA TREATMENTS INCENTIVE SPIROMETRY PT/WALKING CLOSE MONITORING Thank you, Saige (This form is maintained as a part of the permanent medical record) 2014 [employer]. All Rights Reserved Saige Yanez RN, CDIS [email or web address] [phone] [facility]
[2018-03-09] MEDS: Calcium Carbonate 500 MG ChewTAB PO PRN (12:47)
[2018-03-09 13:39] LABS: Actual Bicarbonate (HCO3a) 22.4 mEq/L (22-28); Analyzer IN Cardio OR; Base Excess (BEa) -1.4 mEq/L (-2.0 to +3.0); CO2 Tension 34.2 mmHg (35.0-45.0); Calcium, Ionized 1.06 mmol/L (1.12-1.30); Carboxyhemoglobin (COHb) 0.1 gm% (0.0-3.0); Hemoglobin (Hb) 10.6 g/dL (12.0-16.0); O2 Tension (PaO2) 183.2 mmHg (> 70.0); Potassium - ABG Lab 3.61 mmol/L (3.70-5.30); pH, Arterial 7.43 (7.35-7.45)
[2018-03-09 14:38] LABS: Puncture Site ALINE
--- NOTE | 2018-03-09 15:13 | CON ---
DATE OF CONSULTATION: This is a nephrology consult. REASON FOR CONSULTATION: Elevated creatinine . HISTORY OF PRESENT ILLNESS: This is a very pleasant 72-year-old female, who presented to the hospital with gross hematuria and had a nephrectomy of the right kidney. The patient's baseline creatinine has been 1.4 since February creatinines have ranged anywhere from 1.2 to 1.1 since 2017. The creatinine has slightly increased to 1.5. The patient denies no headache, numbness, tingling, or weakness. Denies any nausea, vomiting, or chest pain. PAST MEDICAL HISTORY: Significant for hypertension, cholecystectomy, left forehead surgery, and right knee replacement. SOCIAL HISTORY: No alcohol or drug use. FAMILY HISTORY: Negative for ESRD. ALLERGIES: REVIEWED. HOME MEDICATIONS: List reviewed. REVIEW OF SYSTEMS: Fifteen-point review of system was performed and was negative except for positives noted above. NECK: No swelling or lumps. NOSE: No epistaxis or discharge. EYES: No diplopia or pain. MUSCULOSKELETAL: No joint pain. NEUROPSYCHIATIC SYSTEMS: No suicidal ideation. No ideation. SKIN: Denies any rash or ulcer. CONSTITUTIONAL: No fever or chills. PHYSICAL EXAMINATION: CONSTITUTIONAL: On examination, the patient is awake, alert. VITAL SIGNS: pulse 77, breathing 16, and blood pressure was 155/73. GENERAL APPEARANCE AND MENTAL STATUS: Fair. HEAD/NECK: Normocephalic. Atraumatic. EYES: EOMI. No deformity. EARS: Clear. No ulcers. NOSE: Intact. No lesions. MOUTH: Clear. No discharge. THROAT: Clear. No exudate. LUNGS: Clear. No crackles. CARDIAC: S1, S2. No rub. ABDOMEN: Benign. Bowel sounds positive. GENITALIA/RECTUM: Mcmahon absent. BACK/EXTREMITIES: Edema 0+. NEUROLOGICAL: Alert and motor intact. LABORATORY DATA: Labs show creatinine 1.5 and bicarb 18. Hemoglobin 9.5. ASSESSMENT AND PLAN: 1. Acute kidney injury with chronic kidney disease most likely because of hypertensive nephrosclerosis. 2. Hypertension. We would increase the metoprolol to 150 b.i.d. Continue can be restarted later if needed. 3. Anemia. The patient will need some sort of baseline hemoglobin. Job ID: [id number]
[2018-03-09] MEDS ORDERED: HYDROcodone/Acetaminophen 10/325 mg Tablet PO PRN ×2 (17:11)
[2018-03-09] MEDS ORDERED: HYDROcodone/Acetaminophen 5/325 mg Tablet PO PRN ×2 (17:12)
[2018-03-09] MEDS: Famotidine/PF 20 mg/2ml Vial SLOW IVP SCH (20:27)
[2018-03-09] MEDS: Melatonin 3 MG TAB PO SCH (20:27)
--- NOTE | 2018-03-10 01:05 | CON ---
DATE OF CONSULTATION: PRIMARY CARE PHYSICIAN: Dr. Malone Head. PRIMARY TEAM: Urology, Dr. Roberts. REASON FOR CONSULTATION: Medical management. HISTORY OF PRESENT ILLNESS: This is a 72-year-old white female with known history of hypertension and recently diagnosed right renal mass with intermittent hematuria. The patient was evaluated in Dr. Roberts's office, had a CT scan done, which revealed a large heterogeneous mass with central area of necrosis, worrisome for renal cell carcinoma, so the patient was brought in last week for a right total nephrectomy. Nephrectomy was done on with pathology pending. Over the weekend, the patient had her blood pressure medicines held. After surgery, she was having some low blood pressures. Then, over the weekend, her blood pressure started to rise and trended into the 160s. Today, she had her epidural out with increasing pain in the right flank at the site of the surgical incision. Blood pressure medicines today were restarted except for her SUMMER inhibitor. Dr. Warren was consulted due to her elevated creatinine, which is mildly up at baseline even before the nephrectomy and determined she probably had hypertensive renal disease. He adjusted her medications. He is going to continue holding SUMMER inhibitor for now and has increased her metoprolol. We have been consulted for assistance with medical management. PAST MEDICAL HISTORY: 1. Hypertension. 2. Mild chronic renal insufficiency. 3. Irregular heartbeat, controlled with metoprolol. PAST SURGICAL HISTORY: 1. Cholecystectomy. 2. Wrist fracture surgery. 3. Right total knee replacement. FAMILY HISTORY: Father is . He had heart disease and unknown type of cancer. Mother is . She was diagnosed with diabetes, hypertension, and heart disease. Brother had cancer of the lung. SOCIAL HISTORY: The patient is . She is a former smoker with a [id number] history. Quit in the early 1970s. No alcohol or illicit drugs. Lives with her , Joe Thorpe. ALLERGIES: 1. CODEINE. 2. CLONIDINE. 3. HYDROCHLOROTHIAZIDE. 4. HYDROCODONE FROM VICODIN. 5. PROPOFOL. HOME MEDICATIONS: 1. Amlodipine 10 mg daily. 2. Lisinopril 40 mg daily. 3. Furosemide 20 mg daily. 4. Calcium carbonate 500 mg 4 times a day as needed. 5. Metoprolol tartrate 100 mg twice a day. 6. Melatonin 5 mg at night. REVIEW OF SYSTEMS: CONSTITUTIONAL: The patient had a low-grade fever of 100.4 on Friday, two days ago. She has been afebrile ever since. No chills. No weight changes. EYES: No double vision or blurred vision. ENT: No congestion, drainage, or sore throat. CARDIOVASCULAR: No chest pain. No palpitations or racing heart. PULMONARY: No coughing, wheezing, or shortness of breath. GASTROINTESTINAL: She has a little bit of nausea. No vomiting. No abdominal pain. No diarrhea or constipation. GENITOURINARY: She has a catheter in place. No dysuria. She did have the hematuria as per the HPI. MUSCULOSKELETAL: No muscle aches or joint pain. She has had right flank pain at the site of her incision. SKIN: No rashes or lesions noted. NEUROLOGIC: No numbness, tingling, or focal weakness. PHYSICAL EXAMINATION: VITAL SIGNS: Blood pressure 161/70, pulse 80, respirations 22, O2 saturation 96% on room air, temperature 97.7. GENERAL: This is a well-developed obese white female, in no acute distress. HEENT: Pupils equal, round, reactive to light. Oropharynx clear without lesions, erythema, or exudate. NECK: Supple. No lymphadenopathy. No thyroid nodules or enlargement. No JVD. HEART: Regular rate and rhythm. No murmurs, rubs, or gallops. LUNGS: Clear to auscultation bilaterally. No wheezes, crackles, or rhonchi. ABDOMEN: Soft, nontender to palpation. Normoactive bowel sounds. No hepatosplenomegaly or other masses. EXTREMITIES: No clubbing, cyanosis, or edema. SKIN: The patient has an incision in the right flank that has dressings clean, dry, intact. No surrounding erythema. NEUROLOGIC: Intact strength and sensation in all extremities. No facial droop. LABORATORY DATA: CBC with white blood cell count of 10.8, down from 12.3 yesterday, hemoglobin 9.5, which is stable since the day of surgery when it was 10.6, platelet count 187. Coagulation profile normal. Basic metabolic panel shows sodium of 136, chloride of 111, carbon dioxide of 18, and a creatinine of 1.52. Her creatinine had been 1.21 prior to surgery, was up to 1.52 day after and has gone above a little bit to 1.65, back down again today. CHEST X-RAY: I did review the chest x-ray done over the weekend when patient had her fever along with the radiologist's report. There was a left basilar opacity on the previous day's chest x-ray, which has resolved, likely resolution of atelectasis. No acute cardiopulmonary disease visualized. EKG: I did review the EKG done preoperatively on the shows normal sinus rhythm, normal axis, no ST changes. Normal EKG. ASSESSMENT: 1. Renal mass, likely renal cell cancer status post right nephrectomy, healing well after surgery. 2. Hypertension, poorly controlled. Resume the patient's home blood pressure medicines except for her lisinopril. Dr. Harrison has increased her metoprolol and now her blood pressure is running in the 150s to 160s. This eventually will need to come down, although some of the elevation may be due to pain, as her pain improves, it may improve as well. Can consider adding a low-dose SUMMER inhibitor once Nephrology is comfortable with that. 3. Chronic renal insufficiency, likely hypertensive along with absence of one of the kidneys now. Dr. Warren is following the patient and monitoring closely. Her creatinine has remained stable. 4. Deep venous thrombosis prophylaxis. The patient has SCDs and OBIE hose. 5. Gastrointestinal prophylaxis. The patient is on Pepcid twice a day. Job ID: [id number]
[2018-03-10] MEDS: Cefepime 2 GM in Sodium Chloride 0.9% 100 ML IVPB SCH (05:15)
[2018-03-10 06:48] LABS: #Eosinphils 0.3 thou/uL (0.0-0.7); #Lymphocytes 1.3 thou/uL (1.20-3.40); #Monocytes 1.2 thou/uL (0.11-0.59); #Neutrophils 6.9 thou/uL (1.40-6.50); %Basophils 0.3 % (0.0-1.0); %Eosinophils 2.6 % (0.0-10.0); %Monocytes 12.4 % (0.0-10.0); %Neutrophils 71.7 % (42.0-75.0); Mean Corpuscular HGB CONC 33.8 g/dL (32.0-36.0); Mean Corpuscular Hemoglobin 31.9 pg (27.0-31.0); Mean Corpuscular Volume 94.3 fL (78.0-98.0); Mean Platelet Volume 9.1 fL (7.4-10.4); Platelet Count 237 thou/uL (130-400); RBC Distribution Width 11.9 % (11.5-14.5); Red Blood Cell (RBC) Count 3.15 mill/uL (4.20-5.40); White Blood Cell (WBC) Count 9.7 thou/uL (4.8-10.8)
[2018-03-10 07:02] LABS: Anion Gap 10 mmol/L (10-20); BUN (Urea Nitrogen) 18 mg/dL (9.8-20.1); Calc. Creatinine Clearance 40 mL/min (70-130); Calcium 8.3 mg/dL (7.8-10.44); Carbon Dioxide 21 mmol/L (23-31); Chloride 107 mmol/L (98-107); Estimated GFR-MDRD 37; Glucose 107 mg/dL (83-110); Potassium 3.6 mmol/L (3.5-5.1); Sodium 134 mmol/L (136-145)
[2018-03-10] MEDS ORDERED: Enoxaparin Sodium 40 MG/0.4 ML SYRINGE SC SCH (09:00)
[2018-03-10] MEDS: Docusate 100 MG CAP PO SCH (09:11)
[2018-03-10] MEDS: Amlodipine 10 MG TAB PO SCH (09:11)
[2018-03-10] MEDS: Metoprolol Tartrate 100 MG TAB PO SCH (09:11)
[2018-03-10] MEDS: Furosemide 20 MG TAB PO SCH (09:11)
--- NOTE | 2018-03-10 09:18 | PDOC.PN ---
- Subjective Encounter Start Date: 03/10/18 Encounter Start Time: 12:00 Subjective: Patient with decreased pain. Still hurts when gets up to move. - Objective MAR Reviewed: Yes Vital Signs & Weight: Vital Signs (12 hours) Temp Pulse Resp BP Pulse Ox 03/10/18 08:15 98.9 F 77 16 173/70 H 95 03/10/18 06:57 73 16 97 03/10/18 04:57 98.4 F 68 19 150/88 H 96 03/10/18 00:08 67 12 96 03/10/18 00:00 98.8 F 68 19 138/67 95 Weight Weight 154 lb I&O: 03/09/18 03/10/18 03/11/18 06:59 06:59 06:59 Intake Total 3841 1700 Output Total 1100 1900 Balance 2741 -200 Result Diagrams: 03/10/18 06:28 03/10/18 06:28 Phys Exam - Physical Examination Constitutional: NAD HEENT: moist MMs Respiratory: no wheezing, no rales, no rhonchi Cardiovascular: RRR, no significant murmur Gastrointestinal: soft, positive bowel sounds right flank incision C/D/I Neurological: non-focal, moves all 4 limbs Psychiatric: normal affect, A&O x 3 Dx/Plan (1) S/p nephrectomy Code(s): Z90.5 - ACQUIRED ABSENCE OF KIDNEY Status: Acute Comment: S/P right nephrectomy for likely RCC (2) Hypertension Code(s): I10 - ESSENTIAL (PRIMARY) HYPERTENSION Status: Chronic Qualifiers: Hypertension type: essential hypertension Qualified Code(s): I10 - Essential (primary) hypertension Comment: uncontrolled, consider addition of hydralazine vs. reintroduction of SUMMER-I if recommended by nephrology (3) Chronic renal failure, stage 2 (mild) Code(s): N18.2 - CHRONIC KIDNEY DISEASE, STAGE 2 (MILD) Status: Chronic Comment: creatinine actually improved this AM - Plan cont current plan of care, PT/OT, out of bed/ambulate, DVT proph w/lovenox, DVT proph w/SCDs Patient cleared to go home by Dr. Lang. I did discuss -: the patient with Dr. Warren and he recommended restarting Lisinopril -: at 5mg daily, then recheck BMP in 1 week and f/u with Dr. Warren in -: [place] in 2 weeks. * . - Discharge Day Encounter end time: 12:15
--- NOTE | 2018-03-10 09:35 | PRG ---
DATE OF SERVICE: 03/10/2018 SUBJECTIVE: The patient's last pain medication tramadol last evening, had some discomfort with ambulation. Mostly the discomfort is associated with vigorous cough. OBJECTIVE: VITAL SIGNS: Afebrile for 24 hours. Last T-max 100.2, 03/08 at 7 a.m. T current is 98.4. Vital signs are stable, pulse 73, respirations 16, O2 sat 97 % on room air. Blood pressure systolic has run from 129 to 161, diastolic running from 67 to 88. GENERAL: The patient resting comfortably. LUNGS: Clear. ABDOMEN: Bowel sounds active. No rigidity. No rebound. Incision is clean, dry, and intact, clean with peroxide at bedside. EXTREMITIES: No cyanosis, clubbing, or edema. Mcmahon catheter draining clear yellow urine. Catheter removed. PERTINENT LABORATORY DATA: This morning white count stable at 9.7, hemoglobin stable at 10.0, and platelet 237. Creatinine is 1.3, sodium 134. Pathology is pending. IMPRESSION AND PLAN: Ms. Thorpe is a 72-year-old female who presented with: 1. Large right necrotic mass of the kidney, status post right radical nephrectomy, postop day #4. Her epidural has been DC'd. Her labs are stable. Her renal function is stabilizing. Acute renal insufficiency, multifactorial, status post nephrectomy. Appreciate Nephrology consult. Her SUMMER inhibitor has been held. 2. Her blood pressure continues to be not adequately controlled. Appreciate hospitalist and Nephrology input. We will monitor the patient on p.o. pain medication. She may have an allergy to codeine. It is unclear if she can take hydrocodone. Informed the patient that she may try a low-dose hydrocodone as we are monitoring for side effect profile. Of note, she has tolerated fentanyl epidural without significant issues. 3. Poorly controlled hypertension, the patient can be discharged this afternoon if cleared by internal medicine hospitalist, Nephrology with adjustment of her blood pressure medication based on renal function. The patient verbalized understanding. Possible discharge this afternoon pending Nephrology, hospitalist input. Will need close followup with her artificial teeth inspector, Dr. Meyers. We will recheck status on afternoon rounds. Mcmahon catheter, DC'd. Job ID: [id number] [facility]
[2018-03-10] MEDS ORDERED: Lisinopril 5 MG TAB PO SCH (12:15)
--- NOTE | 2018-03-10 12:55 | PRG ---
DATE OF SERVICE: 03/10/2018 SUBJECTIVE: A 72-year-old female being seen for acute kidney injury. The patient denies any nausea, vomiting, or chest pain. OBJECTIVE: CONSTITUTIONAL: The patient is awake and alert. VITAL SIGNS: Afebrile. Pulse 80, breathing 16, and blood pressure 158/88. GENERAL APPEARANCE AND MENTAL STATUS: Fair. HEAD/NECK: Normocephalic. Atraumatic. EYES: EOMI. No deformity. EARS: Clear. No ulcers. NOSE: Intact. No lesions. MOUTH: Clear. No discharge. THROAT: Clear. No exudate. LUNGS: Clear. No crackles. CARDIAC: S1, S2. No rub. ABDOMEN: Benign. Bowel sounds positive. GENITALIA/RECTUM: Mcmahon absent. BACK/EXTREMITIES: Edema 0+. NEUROLOGICAL: Alert and motor intact. SKIN: LYMPHATICS: LABORATORY DATA: Labs show hemoglobin 10. Creatinine 1.3. ASSESSMENT AND PLAN: 1. Chronic kidney disease stage 3, stable. 2. Hypertension. Metoprolol can be increased to 200 b.i.d. and hydralazine can be added. 3. Anemia, stable. 4. Medication based on GFR appropriate. The patient will follow up to see me in 2 weeks. Job ID: [id number]
[2018-03-10 16:28] VITALS: BP 152/70; TEMP 99.5
--- NOTE | 2018-03-11 04:43 | DIS ---
DATE OF ADMISSION: 03/06/2018 DATE OF DISCHARGE: 03/10/2018 PRIMARY CARE PHYSICIAN: Dr. Faisal Lopez. UROLOGIST: Dr. Roberts. REASON FOR ADMISSION: Scheduled right nephrectomy for large renal mass, likely renal cell carcinoma. DIAGNOSES AT DISCHARGE: 1. Status post nephrectomy, doing well postoperatively. 2. Hypertension. 3. Chronic renal failure stage 2. PROCEDURES: Right nephrectomy. CONSULTATIONS: 1. Admitting Team Urology, Dr. Roberts. 2. Nephrology, Dr. Warren. 3. Hospitalist Service, Dr. Maki. PERTINENT LABORATORY DATA: Creatinine 1.48 on admission, down to 1.39 at discharge. Hemoglobin initially 13.4, down to 10. Discharge stable over the postoperative course. SUMMARY OF HOSPITAL COURSE: This is a 72-year-old white female with a known history of hypertension with a previously diagnosed right renal mass and intermittent hematuria, evaluated by Dr. Roberts's office. She had a CT scan done, was concerning for renal cell carcinoma, so she is scheduled for a nephrectomy. The patient had her operation without complication. After surgery, her blood pressure was running on the low side, so her blood pressure medications were held. However, her blood pressure came up over the weekend after the surgery, especially once her epidural was out and had pain had decreased. Her blood pressure medicines were restarted except for her SUMMER inhibitor. Dr. Warren was consulted for nephrology and we were consulted to assist with medical management. Her metoprolol was increased and on the day of discharge, her creatinine had improved significantly. Dr. Warren recommended starting 5 mg of lisinopril back on. The patient is being discharged home. DISCHARGE MANAGEMENT: Discharged home. FOLLOWUP: Follow up with Dr. Lopez in 1 week. She will get basic metabolic panel drawn at that time and the results are to be faxed to Dr. Warren's office. She is to follow up with Dr. Warren in 2 weeks when he comes to [place] and his office will call her to set up an appointment. Also to follow up with Dr. Roberts on March 20 at 11:[address] Meyers, the patient's convict guard in 3 days. ACTIVITY: As tolerated. DIET: Healthy heart low-sodium diet. MEDICATIONS: 1. Colace 100 mg twice a day, 30 caps dispensed. 2. Goldvein 5/325, 1 to 2 tablets every 4 hours as needed for pain, 30 tabs dispensed. 3. Tramadol 50 mg 1 to 2 tablets every 6 hours as needed for pain, 30 tablets dispensed. 4. Metoprolol tartrate 150 mg twice a day, 60 tablets dispensed. 5. Lisinopril 5 mg daily, 30 tablets dispensed. 6. Continue amlodipine 10 mg daily. 7. Furosemide 20 mg daily. 8. Tums as needed. 9. Melatonin 5 mg at night. Job ID: [id number]
[2018-03-11] MEDS ORDERED: Lisinopril 5 MG TAB PO SCH (09:00)
--- NOTE | 2018-03-11 15:34 | DIS ---
DATE OF ADMISSION: 03/06/2018 DATE OF DISCHARGE: 03/10/2018 ADMITTING DIAGNOSIS: Right renal mass. PROCEDURE: Right radical nephrectomy on March 06, 2018. BRIEF HOSPITAL COURSE: Ms. Thorpe is a pleasant 72-year-old female, whom I had seen over new year's as she presented with gross hematuria. She underwent workup with CT of the chest demonstrating a large right renal mass. She underwent gross hematuria workup negative for TCC. She subsequently underwent right radical nephrectomy due to ongoing hematuria resulting from large right renal mass. 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 She tolerated right radical nephrectomy uneventfully. Postop chest x-ray routinely performed to rule out occult pneumothorax, negative for pneumothorax however had left atelectasis. PA lateral chest x-ray was repeated postop day #1 with resolution chest x-ray unremarkable. Pain was adequately controlled with epidural. Her hemoglobin remained stable. Her epidural has been discontinued, her pain has controlled with tramadol. She declined [place]. She has been ambulating, has passed flatus, bowel movement, and desires to be discharge. I did consult Nephrology due to acute renal insufficiency, as expected with nephrectomy, baseline hypertension. Also, she had hypertension that was inadequately controlled; therefore, with assistance of hospitalist and Nephrology, we were able to get her blood pressure under better control. I did reach out to a waiter waitress, who will see the patient for close followup for BP check. She is stable to be discharged with excellent self-care at home. DISPOSITION: Home. CONDITION: Stable. DISCHARGE MEDICATIONS: The patient's metoprolol has been increased to 500 mg b.i.d. She is to resume her home medications including Lasix 20 mg p.o. daily, lisinopril has been restarted by Nephrology 5 mg one p.o. daily, she has tramadol refill prescription was provided, continue amlodipine. Prescription for Colace and tramadol prescription was provided. followup appointment next Friday at 11: 45 a.m. for staple removal. She has corresponding followup appointment with Nephrology, Internal Medicine, and Cardiology. Job ID: [id number] [facility]
== END 2018-03-10 17:15 | disposition home or self-care (01) | DRG 657 ==
LOC: SURG A 03-06 07:55 → EDSTATUS 03-06 11:15 → SURG A 03-06 16:24
PROVIDERS: ADMIT Urology; ATTEND Urology
PROC: 0TT00ZZ Resection of Right Kidney, Open Approach (ICD-10-PCS; principal; 2018-03-06)
DX: C64.1 Malignant neoplasm of right kidney, except renal pelvis (principal); J98.11 Atelectasis; N17.9 Acute kidney failure, unspecified; N28.89 Other specified disorders of kidney and ureter; R91.1 Solitary pulmonary nodule; I12.9 Hypertensive chronic kidney disease with stage 1 through stage 4 chronic kidney disease, or unspecified chronic kidney disease; N18.2 Chronic kidney disease, stage 2 (mild); N32.89 Other specified disorders of bladder; D64.9 Anemia, unspecified; Z87.891 Personal history of nicotine dependence; Z90.49 Acquired absence of other specified parts of digestive tract; Z96.651 Presence of right artificial knee joint; Z83.3 Family history of diabetes mellitus; Z82.49 Family history of ischemic heart disease and other diseases of the circulatory system; Z80.9 Family history of malignant neoplasm, unspecified
CPT/HCPCS: 36415; 71045; 71046; 80048; 82805; 85025; 85027; 85610; 85730; 86850; 86900; 86901; 88307; 88313; 88331; 88341; 88342; 93005; 94640; 99214; G0463; J0131; J0692; J1200; J1580; J1650; J1956; J2001; J2250; J2405; J2550; J2704; J3010; J7050; J7620; Q9968; S0028

== ENCOUNTER 2018-03-27 10:08 | Outpatient (CLI) | payer MEDICARE, OTHER ==
--- NOTE | 2018-03-27 15:44 | NM ---
WHOLE BODY BONE SCAN: 03/27/18 HISTORY: Malignant neoplasm of right kidney renal pelvis. Patient had the right kidney removed three weeks ago . RADIOPHARMACEUTICAL: 32 millicuries technetium 99m-MDP injected intravenously. COMPARISON: None. CORRELATION: CT chest, abdomen and pelvis dated 02/25/18. There are postop changes of right knee arthroplasty. Increased uptake in the shoulders, elbows, wrist , hands, ankles, feet and sternoclavicular joints are consistent with degenerative changes. There is a focus of increased uptake in the lateral tip of the right 12th rib. No other abnormal areas of trac er localization is seen in the skeleton. Reactive change secondary to recent surgery and very unlikel y to represent metastatic disease. Tracer excretion through the left kidney is within normal limits. IMPRESSION: No definite evidence of osseous metastatic disease. POS: C
== END 2018-03-27 10:09 | disposition home or self-care (01) ==
LOC: NM 10:08
PROVIDERS: ATTEND Urology
DX: C64.1 Malignant neoplasm of right kidney, except renal pelvis (principal); Z87.448 Personal history of other diseases of urinary system
CPT/HCPCS: 78306; A9503

== ENCOUNTER 2018-06-08 12:39 | Outpatient (CLI) | payer MEDICARE, OTHER ==
--- NOTE | 2018-06-08 13:31 | CT ---
NONCONTRAST ENHANCED CT IMAGES OF CHEST AND ABDOMEN AND PELVIS: HISTORY: Patient with history of clear-cell carcinoma of right kidney with right-sided nephrectomy. FINDINGS: The lung parenchyma demonstrates again a 7 mm well-circumscribed lung parenchymal mass in the right m iddle lobe unchanged since the previous exam. No other lung parenchymal masses or lesions seen. Some mediastinal lymph node calcifications seen. No evidence of coronary artery calcifications seen. No definite evidence of osseous lesions seen. Disc space height loss and vacuum disc changes seen at the L5-S1 level. The liver is unremarkable. Surgical clips seen in the gallbladder fossa. The spleen is unremarkable. Some splenic calcifications compatible with granulomatous disease seen. The stomach and pancreas are unremarkable. Adrenal glands unremarkable. The patient has had a right-sided nephrectomy. Numerous colonic diverticuli are present. Some calcifications seen in the uterus compatible with uterine fibroids. No dilated loops of small bowel seen. A normal appendix is visualized. No evidence of periaortic lymphadenopathy seen. There continues to be a prominent left ovarian cyst or cystic lesion unchanged since the previous exa m. Malignancy in a patient of this age cannot be excluded. IMPRESSION: 1. Interval right-sided nephrectomy. 2. Stable right middle lobe lung parenchymal nodular density. No other pulmonary parenchymal lesion seen. 3. Left ovarian cyst or cystic lesion. Transcribed Date/Time: 06/08/2018 1:44 PM
== END 2018-06-08 12:40 | disposition home or self-care (01) ==
LOC: BICCT 12:39
PROVIDERS: ATTEND Urology
DX: C64.1 Malignant neoplasm of right kidney, except renal pelvis (principal); R91.1 Solitary pulmonary nodule; R31.0 Gross hematuria; J98.4 Other disorders of lung; Z90.5 Acquired absence of kidney
CPT/HCPCS: 71260; 74177

== ENCOUNTER 2018-12-29 10:57 | Outpatient (CLI) | payer MEDICARE, OTHER ==
--- NOTE | 2018-12-29 11:21 | RAD ---
EXAM: Chest 2 views: HISTORY: Clear cell carcinoma of right kidney, pulmonary nodule COMPARISON: Chest CT, 06/08/2018 FINDINGS: Heart size:Within normal limits. Lungs:0.7 cm diameter nodule overlying the right lower lobe region on PA radiograph not definitely lo calized on the lateral radiograph. Atherosclerotic changes of the aorta. No confluent pneumonia, overt edema, pleural effusion, pneumothorax, or other significant acute proce ss. IMPRESSION: Approximately 0.7 cm diameter nodule in the region of the right lower lobe. This does not appear significant change from the prior CT. Atherosclerosis of the aorta. No acute intrathoracic disease.
== END 2018-12-29 10:58 | disposition home or self-care (01) ==
LOC: RAD 10:57
PROVIDERS: ATTEND Urology
DX: C64.1 Malignant neoplasm of right kidney, except renal pelvis (principal); R91.1 Solitary pulmonary nodule; I70.0 Atherosclerosis of aorta; Z90.5 Acquired absence of kidney
CPT/HCPCS: 71046

== ENCOUNTER 2019-03-16 10:19 | Outpatient (CLI) | payer MEDICARE, OTHER ==
--- NOTE | 2019-03-16 11:22 | CT ---
EXAM: CT of the chest without contrast CT of the abdomen and pelvis without contrast HISTORY: Clear cell carcinoma of the right kidney status post right nephrectomy. Pulmonary nodule. COMPARISON: 02/25/2018, 06/08/2018 TECHNIQUE: 1. Multiple contiguous axial images were obtained in a CT the chest without contrast. Coronal and sag ittal reformats were performed. 2. Multiple contiguous axial images were obtained and a CT of the abdomen and pelvis without contrast . Coronal and sagittal reformats were performed. FINDINGS: CT CHEST: HEART: Normal in size without focal cardiac abnormality MEDIASTINUM: No hilar or mediastinal lymphadenopathy. LUNGS: There is a well-circumscribed 2 mm nodule in the superior aspect of the right lower lobe. This appears to have slightly enlarged compared to the prior examination. PLEURAL SPACE: No pneumothorax or pleural effusion. CHEST WALL SOFT TISSUES: Unremarkable CT ABDOMEN/PELVIS: ABDOMEN: LIVER: within normal limits. BILE DUCTS: Normal caliber. GALLBLADDER: Removed. PANCREAS: within normal limits. SPLEEN: Calcified granulomas. ADRENALS: Status post right nephrectomy. No mass in the surgical bed. The left kidney is unremarkable . KIDNEYS: within normal limits. PELVIS: REPRODUCTIVE ORGANS: Calcified fibroid in the uterus. There is a stable 3.6 cm cystic lesion in the l eft adnexa which likely represents a left ovarian cyst/follicle. URETERS: within normal limits. BLADDER: within normal limits. PERITONEUM: No ascites or free air, no fluid collection. BOWEL: Normal caliber. Scattered diverticula in the colon. Normal appendix. MESENTERY AND RETROPERITONEUM: No enlarged mesenteric or retroperitoneal lymph nodes. VESSELS: Normal. ABDOMINAL WALL: within normal limits. OSSEOUS STRUCTURES: Degenerative changes in the spine without suspicious osseous lesions identified. IMPRESSION: 1. Slightly larger right lower lobe pulmonary nodule. 2. No evidence of recurrent disease within the abdomen or pelvis.
== END 2019-03-16 10:20 | disposition home or self-care (01) ==
LOC: CT 10:19
PROVIDERS: ATTEND Urology
DX: C64.1 Malignant neoplasm of right kidney, except renal pelvis (principal); R91.1 Solitary pulmonary nodule; Z90.5 Acquired absence of kidney
CPT/HCPCS: 36415; 71250; 74177; 80053; 81003; 81015

== ENCOUNTER 2019-06-21 08:49 | Outpatient (CLI) | payer MEDICARE, OTHER ==
--- NOTE | 2019-06-21 10:09 | CT ---
CT of chest noncontrast HISTORY: Lung nodule. Right kidney cancer. COMPARISON: Multiple exams back to 02/25/2018. FINDINGS: Lungs are well-inflated. Lobular nodule at the right lateral costophrenic angle within the right lower lobe is now 0.8 cm length by 1.0 cm depth by 0.7 cm width, where on the study from 02/25/2018, it was 0.6 cm x 0.6 cm x 0.6 cm. The tiny nearby nodule immediately medial to it is stable. No new nodules evident. Tiny nonspecific linear interstitial scarring at the right lateral apex is st able. No pleural fluid or pneumothorax. Lack of contrast limits evaluation of the soft tissues. There is calcification throughout the arteria l structures. Nonspecific lymph nodes throughout the mediastinum. IMPRESSION : The oval soft tissue density nodule at the right lower lobe lateral costophrenic angle has enlarged s lightly over the 16 month interval, increasing from 0.6 cm to 1.0 cm greatest diameter. It is of borderline size for detection with PET scan. Percutaneous sampling is not possible given the size and location. No new abnormalities evident. Atherosclerosis.
--- NOTE | 2019-06-21 14:07 | NM ---
WHOLE BODY BONE SCAN: HISTORY: Malignant neoplasm of right kidney and left renal pelvis. RADIOPHARMACEUTICAL: 33 mCi Technetium 99m-MDP injected intravenously. COMPARISON: 03/27/2018. FINDINGS: Postop changes of right nephrectomy and right knee arthroplasty are again seen. Increased uptake in the shoulders, elbows, wrists, hands, ankles, feet, and sternoclavicular joints are again seen consis tent with degenerative changes. There has been interval resolution of the focus of increased uptake in the lateral tip of the right 5 th rib. No other abnormal areas of tracer localization are seen in the skeleton. Tracer excretion through the left kidney is within normal limits. IMPRESSION: No evidence of osseous metastatic disease. POS: [facility]
== END 2019-06-21 08:50 | disposition home or self-care (01) ==
LOC: CT 08:49
PROVIDERS: ATTEND Urology
DX: C64.1 Malignant neoplasm of right kidney, except renal pelvis (principal); R91.1 Solitary pulmonary nodule; I70.90 Unspecified atherosclerosis; J98.4 Other disorders of lung
CPT/HCPCS: 71250; 78306; A9503

== ENCOUNTER 2019-11-04 09:34 | Outpatient (CLI) | payer MEDICARE, OTHER ==
--- NOTE | 2019-11-04 11:46 | PET ---
EXAM: PET/CT HISTORY: History of clear cell carcinoma of the right kidney with an enlarging right lower lobe pulmonary nodu le TECHNIQUE: PET scanning with CT attenuation correction was performed from the base of the brain to the proximal thighs following the intravenous administration of 12.5 millicuries [id number]. COMPARISON: CT of the thorax dated November 02, 2019, CT the chest, abdomen and pelvis dated March 16, [address] of the thorax dated February 25, 2018 FINDINGS: Biodistribution:The biodistribution for the exam appears acceptable. Head and neck: There is appropriate background activity within the brain. No hypermetabolic lymphaden opathy or masses identified. Thorax: The 1.1 cm pulmonary nodule in the right lower lobe demonstrates no associated hypermetabolic uptake and has a peak activity of 1.05 and a mean activity 0.99. The adjacent 4 mm pulmonary nodule within the anterolateral right lower lobe is below PET resolution threshold. The focus of subp leural groundglass opacity within the superior segment of the right lower lobe demonstrates no hypermetabolic uptake. No hypermetabolic pleural effusion is demonstrated. Abdomen and pelvis: There is expected background activity within the GI and systems. No hypermetab olic mass, lymphadenopathy or ascites is present. There is a non hypermetabolic hypodense lesion within the region of the left adnexa measuring 3.4 cm most suspicious for a serous inclusion cyst. Th ere is a small fibroid uterus. There is colonic diverticulosis. There is postprocedural change of a right nephrectomy. No suspicious hypermetabolic activity is seen within the right renal surgical bed. Osseous structures and skin: No hypermetabolic skin or osseous lesion is identified. IMPRESSION: 1. No hypermetabolic activity associated with the enlarging pulmonary nodule in the right lower lobe. The small subpleural groundglass opacity within the superior segment of the right lower lobe has no associated hypermetabolic activity. Recommend a short-term CT follow-up of the thorax to document stability or resolution. Findings are suspicious for possible inflammatory nodule. The groundglass pulmonary opacity demonstrates no associated hypermetabolic activity and may be related to an area of infectious or inflammatory bronchiolitis; however, malignancy such as adenocarcinoma cannot be entirely excluded. Continued follow-up is recommended. 2. Suspected serous inclusion cyst of the left adnexa measuring 3.4 cm. Follow-up pelvic ultrasound i n 6 months is recommended to document stability. Transcribed Date/Time: 11/04/2019 12:08 PM
== END 2019-11-04 09:35 | disposition home or self-care (01) ==
LOC: PET 09:34
PROVIDERS: ATTEND Urology
DX: C64.1 Malignant neoplasm of right kidney, except renal pelvis (principal); R91.1 Solitary pulmonary nodule; R91.8 Other nonspecific abnormal finding of lung field
CPT/HCPCS: 78815; A9552; 36415; 80053; 81001

== ENCOUNTER 2020-03-23 12:45 | Outpatient (CLI) | payer MEDICARE, OTHER ==
--- NOTE | 2020-03-23 14:06 | ULT ---
Transabdominal pelvic ultrasound INDICATION: History of left ovarian cyst TECHNIQUE: Grayscale, color Doppler images were obtained of the pelvis via transabdominal approach on ly. The patient declined the transvaginal exam. FINDINGS: UTERUS: Size: 6.3 x 3.0 x 3.0 Mass: There is a partially calcified fibroid within the anterior aspect of the uterine body. This sara sures 2.7 cm. Cervix: Not well seen Endometrial Thickness: Not visualized. RIGHT OVARY: The right adnexa cannot be visualized. LEFT OVARY: The left ovarian tissue was not well seen. Therefore, dimensions of the ovary were diffi cult to fully assess. Mass: There is a 2.9 x 2.9 x 3.4 cm cyst within the left ovary.. Flow: Not well documented CUL-DE-SAC: No free fluid IMPRESSION: 1. 3.4 cm left ovarian simple cyst. This likely reflects a serous inclusion cyst that has been relati vely stable in size and appearance from February 25, 2018 CT examination of the abdomen and pelvis. 2. Fibroid uterus.
--- NOTE | 2020-03-23 14:20 | CT ---
CT OF THE THORAX WITHOUT IV CONTRAST INDICATION: History of renal carcinoma and pulmonary nodule COMPARISON: CT of the thorax without contrast dated November 02, 2019 and February 25, 2018 FINDINGS: LUNGS: The lobulated soft tissue pulmonary nodule in the right lower lobe on image 1:15 of series 3 i s stable measuring 11 mm. The adjacent 5 mm pulmonary nodule in the right lower lobe is stable. There is a small 3.9 mm subpleural pulmonary nodule within the right lower lobe that is stable possib ly reflecting a small intrapulmonary lymph node. The area of groundglass nodular opacity seen within the posterior aspect of the right lower lobe on the prior examination is near totally resolved . There are a few scattered tree-in-bud nodules within this region. There is a calcified granuloma left upper lobe and the left lower lobe. Pleural spaces: Clear Lymph nodes: There is a calcified lymph node within the left hilar region and left aspect of the medi astinum. No pathologically enlarged lymph nodes are evident. Heart and great vessels: There are coronary artery and thoracic aortic calcifications. Upper abdomen: Gallbladder is surgically absent. The scattered colonic diverticulosis. Right kidney i s surgically absent. Adrenal glands are normal appearing. Visualized aspects of the unopacified left kidney are unremarkable appearing. Osseous structures: No acute osseous abnormality. IMPRESSION: 1. Stable right lower lobe pulmonary nodules. Continued CT follow-up in 6 months is recommended. 2. Groundglass subpleural opacity seen within the posterior aspect of the right lower lobe on the mos t recent CT evaluation has near totally resolved. A few small foci of tree-in-bud nodularity remain within this region. Findings likely reflect sequela of a bronchoalveolitis. 3. Stable findings of chronic granulomatous disease.
== END 2020-03-23 12:46 | disposition home or self-care (01) ==
LOC: BICCT 12:45
PROVIDERS: ATTEND Urology
DX: C64.1 Malignant neoplasm of right kidney, except renal pelvis (principal); N83.202 Unspecified ovarian cyst, left side; R91.8 Other nonspecific abnormal finding of lung field; J84.10 Pulmonary fibrosis, unspecified; D25.9 Leiomyoma of uterus, unspecified
CPT/HCPCS: 36415; 71250; 76856; 80053; 93976

== ENCOUNTER 2020-12-04 14:07 | Outpatient (CLI) | payer MEDICARE, OTHER | END 2020-12-04 14:08 | disposition home or self-care (01) | LOC: BICCT 14:07 | PROVIDERS: ATTEND Urology | DX: C64.1 Malignant neoplasm of right kidney, except renal pelvis (principal); N18.9 Chronic kidney disease, unspecified; R91.1 Solitary pulmonary nodule; Z90.5 Acquired absence of kidney | CPT/HCPCS: 71250; 74177 ==

== ENCOUNTER 2021-12-07 09:50 | Outpatient (CLI) | payer MEDICARE, OTHER | END 2021-12-07 09:51 | disposition home or self-care (01) | LOC: BICCT 09:50 | PROVIDERS: ATTEND Urology | DX: C64.1 Malignant neoplasm of right kidney, except renal pelvis (principal); N83.202 Unspecified ovarian cyst, left side; N18.9 Chronic kidney disease, unspecified; K76.9 Liver disease, unspecified; R91.8 Other nonspecific abnormal finding of lung field; K57.30 Diverticulosis of large intestine without perforation or abscess without bleeding; Z90.5 Acquired absence of kidney | CPT/HCPCS: 71250; 74177 ==

== ENCOUNTER → 2021-12-17 | Day surgery (SDC) | payer MEDICARE, OTHER ==
[~2021-12-17] MED LIST: Iopamidol 370 76% 100 ML VIAL ONE
[2021-12-17 08:07] LABS: #Basophils 0.1 thou/uL (0.0-0.2); #Eosinphils 0.2 thou/uL (0.0-0.7); #Monocytes 0.7 thou/uL (0.11-0.59); #Neutrophils 5.1 thou/uL (1.40-6.50); %Basophils 0.9 % (0.0-1.0); %Lymphocytes 25.2 % (21.0-51.0); %Monocytes 8.1 % (0.0-10.0); %Neutrophils 62.8 % (42.0-75.0); Hemoglobin 15.8 g/dL (12.0-16.0); Mean Corpuscular HGB CONC 32.3 g/dL (32.0-36.0); Mean Corpuscular Hemoglobin 31.8 pg (27.0-31.0); Mean Corpuscular Volume 98.6 fL (78.0-98.0); Mean Platelet Volume 10.3 fL (7.4-10.4); Platelet Count 208 thou/uL (130-400); RBC Distribution Width 12.3 % (11.5-14.5); Red Blood Cell (RBC) Count 4.97 mill/uL (4.20-5.40); White Blood Cell (WBC) Count 8.1 thou/uL (4.8-10.8)
[2021-12-17 08:14] LABS: Prothrombin Time 13.1 sec (12.0-14.7)
[2021-12-17 08:15] LABS: PTT 32.9 sec (22.9-36.1)
[2021-12-17 12:56] VITALS: BP 177/91; TEMP 97.6; BMI 30.7
== END ==
LOC: CT 07:30
PROVIDERS: ATTEND Urology
DX: R19.00 Intra-abdominal and pelvic swelling, mass and lump, unspecified site (principal); R16.0 Hepatomegaly, not elsewhere classified; R91.8 Other nonspecific abnormal finding of lung field; K57.30 Diverticulosis of large intestine without perforation or abscess without bleeding; K44.9 Diaphragmatic hernia without obstruction or gangrene; I13.10 Hypertensive heart and chronic kidney disease without heart failure, with stage 1 through stage 4 chronic kidney disease, or unspecified chronic kidney disease; N18.9 Chronic kidney disease, unspecified; Z87.891 Personal history of nicotine dependence; Z79.84 Long term (current) use of oral hypoglycemic drugs; Z79.899 Other long term (current) drug therapy; Z90.5 Acquired absence of kidney; Z88.1 Allergy status to other antibiotic agents; Z88.5 Allergy status to narcotic agent; Z88.8 Allergy status to other drugs, medicaments and biological substances; Z91.048 Other nonmedicinal substance allergy status
CPT/HCPCS: 36415; 74170; 82565; 85025; 85610; 85730; Q9967

== ENCOUNTER 2022-06-20 08:13 | Outpatient (CLI) | payer MEDICARE, OTHER | END 2022-06-20 08:14 | disposition home or self-care (01) | LOC: CT 08:13 | PROVIDERS: ATTEND Urology | DX: C64.1 Malignant neoplasm of right kidney, except renal pelvis (principal); R91.1 Solitary pulmonary nodule; R16.0 Hepatomegaly, not elsewhere classified | CPT/HCPCS: 71250; 74177; 78815; A9552 ==

== ENCOUNTER 2023-07-22 10:15 | Outpatient (CLI) | payer MEDICARE, OTHER | END 2023-07-22 10:16 | disposition home or self-care (01) | LOC: PET 10:15 | PROVIDERS: ATTEND Urology | DX: C64.1 Malignant neoplasm of right kidney, except renal pelvis (principal); N18.9 Chronic kidney disease, unspecified; R16.0 Hepatomegaly, not elsewhere classified; R91.8 Other nonspecific abnormal finding of lung field; Z90.5 Acquired absence of kidney | CPT/HCPCS: 78815; A9552 ==